=== PATIENT | male | born 1945 | race Caucasian/White ===

== ENCOUNTER 2018-04-21 15:29 | Inpatient (IN) | payer MEDICARE ==
[~2018-04-21] VITALS: Ht 185.4 cm; Wt 97.5 kg
[~2018-04-21 15:29] MED LIST: ACETAMINOPHEN325 M1 PO; ASPIRIN EC81 MG PO; ATENOLOL100 MG PO; ATORVASTATIN CA20 MG PO; BACTROBAN15 GM TOP; BRILINTA90 MG PO; CIPRO500 MG PO; COLACE100 MG PO; DILAUDID2 MG PO; DIPHENHYDRAMINE25 M1 PO; DOXYCYCLINE MO100 MG PO; FUROSEMIDE20 MG PO; GABAPENTIN300 MG PO; GEMFIBROZIL600 MG PO; GLIMEPIRIDE4 MG PO; HUMALOG100 UNITS/ SQ; HUMULIN N100 UNITS/ SQ; ISOSORBIDE DINI30 MG PO; ISOSORBIDE MONO30 MG PO; LEVAQUIN500 MG PO; LEVEMIR100 UNIT/1 SC; LEVIMIR SC; LISINOPRIL20 MG PO; MELATONIN3 MG PO; METHADONE HCL10 MG PO; MILK OF MA2400 MG/10 PO; MIRALAX17 GM PO; MULTI-VITAMIN1 EACH PO; NITROSTAT0.4 MG SL; NORCO 10-325 T1 EACH PO; NOVOLOG MI100 UNIT/1 SQ; OXYCODONE HCL20 M1 PO; OXYCONTIN10 MG PO; OXYCONTIN20 MG PO; PENICILLIN PO; POTASSIUM GLUCONATE PO; PROBIOTIC COMP1 EAC1 PO; SENNA LAXATIVE1 EACH PO; SUCRALFATE1 GM PO; TUMS DUAL ACTI1 EACH PO; VANCOMYCIN IV; VICODIN ES 7.51 EACH PO; VOLTAREN100 GM TOP; XARELTO20 MG PO; ZOLPIDEM TARTRA10 MG PO; ZYVOX600 MG PO
[2018-04-21] MEDS ORDERED: PIPER-TAZ 3.375 GM 50 ML IV STA (16:47)
[2018-04-21 17:40] LABS: BASOPHILS % 0.4 % (0.0-1.0); EOSINOPHILS # (AUTO) 0.2 (0.0-0.4); EOSINOPHILS % 3.1 % (0.0-6.0); HEMATOCRIT 40.2 % (38.2-49.6); HEMOGLOBIN 12.4 g/dL (14.0-18.0); LYMPHOCYTES # (AUTO) 1.7 (1.0-3.2); MEAN CORPUSCULAR HEMOGLOBIN 27.9 pg (28-32); MEAN CORPUSCULAR HGB CONC 30.8 g/dL (31-35); MEAN CORPUSCULAR VOLUME 90.3 fL (81-99); MONOCYTES # (AUTO) 0.7 (0.2-0.8); MONOCYTES % 8.7 % (4.4-11.3); NEUTROPHILS # (AUTO) 5.1 (2.1-6.9); NEUTROPHILS % 65.5 % (38.7-80.0); PLATELET COUNT 179 x10e3/uL (140-360); RED BLOOD COUNT 4.45 x10e6/uL (4.3-5.7); RED CELL DISTRIBUTION WIDTH 13.6 % (11.7-14.4)
--- NOTE | 2018-04-21 18:57 | Diagnostic Imaging Report ---
FOOT RIGHT COMPLETE - 3 views HISTORY: Nonhealing foot ulcer. Osteomyelitis. COMPARISON: None available. FINDINGS: Bones: Status post transmetatarsal amputation with mild erosion of the left aspect of the amputation site best seen on the lateral view. Generalized osteopenia. No acute fracture. Joints: Degenerative changes of the tarsal joints. Soft tissues: Vascular calcifications. IMPRESSION: Mild erosion in the plantar aspect of the transmetatarsal amputation site may reflect osteomyelitis in this clinical setting. MRI with contrast may be helpful for further evaluation Signed by: Dr. Nicole Gee M.D. on 04/21/2018 6:54 PM
[2018-04-21 19:23] LABS: BILIRUBIN,URINE NEGATIVE (NEGATIVE); CLARITY,URINE CLEAR (CLEAR); COLOR,URINE YELLOW (YELLOW); KETONES,URINE NEGATIVE (NEGATIVE); LEUKOCYTE ESTERASE ,URINE NEGATIVE (NEGATIVE); NITRITE,URINE NEGATIVE (NEGATIVE); PROTEIN,URINE DIPSTICK 2+ (NEGATIVE); URINE UROBILINOGEN 0.2 mg/dL (0.2 - 1)
[2018-04-21] MEDS ORDERED: MORPHINE SULFATE 2 MG/ML SYR IV PRN (19:30)
[2018-04-21] MEDS ORDERED: ONDANSETRON HCL INJ 2 MG/ML VIAL IV PRN (19:30)
[2018-04-21 19:35] LABS: ALANINE AMINOTRANSFERASE 14 IU/L (0-55); ALBUMIN 3.7 g/dL (3.5-5.0); ALBUMIN/GLOBULIN RATIO 1.2 (0.8-2.0); ALKALINE PHOSPHATASE 144 IU/L (40-150); ANION GAP 13.1 mmol/L (8-16); BLOOD UREA NITROGEN 24 mg/dL (7-26); BUN/CREATININE RATIO 21 (6-25); CALCIUM 9.1 mg/dL (8.4-10.2); CARBON DIOXIDE 27 mmol/L (22-29); CHLORIDE 102 mmol/L (98-107); CREATININE, SERUM 1.12 mg/dL (0.72-1.25); EST GLOMERULAR FILTRATION RATE > 60 ML/MIN (60-); GLUCOSE 112 mg/dL (74-118); POTASSIUM 4.1 mmol/L (3.5-5.1); SODIUM 138 mmol/L (136-145)
[2018-04-21 19:36] LABS: BACTERIA,URINE FEW /HPF; EPITHELIAL CELLS,URINE FEW /LPF
[2018-04-21] MEDS: MORPHINE SULFATE INJ 4 MG/ML INJ IV PRN (19:55)
[2018-04-21] MEDS ORDERED: DEXTROSE 50% SYRINGE 50 ML IV PRN (20:00)
[2018-04-21] MEDS ORDERED: LORAZEPAM INJ 2 MG/ML VIAL IV ONE (20:00)
--- OUTSIDE RECORDS SUMMARY | 2018-04-21 20:25 | XMS REPORT | Clinical Summary ---
Author Author IBETH [facility] Center[facility] Address Unknown Phone Unavailable Care Team Providers Care Real Property Appraiser Name Role Phone PCP Unavailable Allergies Active Allergy Reactions Severity Noted Date Comments Codeine Other (See Comments) 12/15/2012 Stomach ache Current Medications Prescription Sig. Disp. Refills Start End Date Status Date atenolol (TENORMIN) 100 Take 50 mg by mouth 2 Active MG tablet (two) times daily. zolpidem (AMBIEN) 10 mg Take 5 mg by mouth as Active tablet needed. gemfibrozil (LOPID) 600 Take 600 mg by mouth 2 Active MG tablet (two) times daily. lisinopril Take 20 mg by mouth 2 Active (PRINIVIL,ZESTRIL) 20 MG (two) times daily. tablet atorvastatin (LIPITOR) 40 Take 20 mg by mouth Active MG tablet nightly. furosemide (LASIX) 20 MG Take 1 tablet (20 mg 20 tablet 0 12/17/19 Active tablet total) by mouth daily. 13 glimepiride (AMARYL) 4 MG Take 1 tablet (4 mg 30 tablet 5 12/17/19 Active tablet total) by mouth 2 (two) 13 times daily. insulin NPH 100 unit/mL Inject 190 Units Active (3 mL) InPn subcutaneously every morning before breakfast. POTASSIUM CHLORIDE Take by mouth. Active (KLOR-CON M20 ORAL) nitroglycerin (NITROSTAT) Place 0.4 mg under the Active 0.4 MG SL tablet tongue every 5 (five) minutes as needed for Chest pain. Put 1 pill under tongue every 5min as needed for chest pain.No more than 3 doses in 15min.Call 911 if pain is unrelieved 5min after 1st dose methadone (DOLOPHINE) 10 Take 10 mg by mouth 2 Active MG tablet (two) times daily. isosorbide dinitrate Take 60 mg by mouth 2 12/17/19 Active (ISORDIL) 30 MG tablet (two) times daily. 13 insulin lispro (HUMALOG) Inject subcutaneously 3 Active 100 unit/mL (three) times daily injectionIndications: before meals. 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 Other mechanical complication of other internal orthopedic device, implant, 09/25/2014 and graft Unstable angina pectoris (HCC) 12/16/2012 CAD (coronary artery disease) 12/15/2012 Encounters Date Type Specialty Care Team Description 07/21/2017 Hospital Tino Cao Atherosclerosis of [place] Encounter coronary artery, angina presence unspecified, unspecified whether [place] or transplanted heart;Other specified peripheral vascular diseases (CODE) ([facility]);Hypertension, unspecified type;Uncontrolled type 2 diabetes mellitus with complication, unspecified bed bug exterminator insulin use status ([facility]);Other hyperlipidemia;Generalize d ischemic cerebrovascular disease 07/19/2017 Outside Orders Central Scheduling Tino Cao Atherosclerosis of [place] coronary artery, angina presence unspecified, unspecified whether [place] or transplanted heart (Primary Dx);Other specified peripheral vascular diseases (CODE) ([facility]);Hypertension, unspecified type;Uncontrolled type 2 diabetes mellitus with complication, unspecified alf insulin use status ([facility]);Other hyperlipidemia;Generalize d ischemic cerebrovascular disease after 04/20/2017 Social History Tobacco Use Types Packs/Day Years Used Date Never Smoker Smokeless Tobacco: Never Used Alcohol Use Drinks/Week oz/Week Comments No Sex Assigned at Date Recorded Not on file Last Filed Vital Signs Not on file Plan of Treatment Not on file Implants Implanted Type Area Glaze Grinder Device Expiration Model / Identifier Date Serial / Lot Acet Head,Modular Cocr 36mm +12mm Joints Right: Hip [employer] 07/28/2020-866393 Skirted - [id number] / Implanted: Qty: 1 on 09/25/2014 by / Steve Niño MD [id number] Acet Liner,G7 Arcomxl 10 Deg 36mm Pain Right: Hip [employer] 06/27/2018 [id number] - [id number] Mgmt/Stimu / Implanted: Qty: 1 on 09/25/2014 by Steve Garza MD [id number] Acet Liner,G7 Arcomxl Neutral 36mm Pain Right: Hip [employer] 04/27/2018 [id number] G - [id number] Mgmt/Stimu / Implanted: Qty: 1 on 09/25/2014 by Steve Garza MD [id number] Screw,G7 Low Profile Dome 6.5x30mm Pain Right: Hip [employer] 02/26/2024 [id number] - [id number] Mgmt/Stimu / Implanted: Qty: 1 on 09/25/2014 by Steve Garza MD [id number] Screw,G7 Low Profile Dome 6.5x15mm Pain Right: Hip [employer] 03/27/2024 [id number] - [id number] Mgmt/Stimu / Implanted: Qty: 1 on 09/25/2014 by Steve Garza MD [id number] Screw,G7 Low Profile Dome 6.5x25mm Pain Right: Hip [employer] 01/26/2024 [id number] - [id number] Mgmt/Stimu / Implanted: Qty: 1 on 09/25/2014 by Steve Garza MD [id number] G7 [place] Ti Acetabular Shell Right: Hip [employer] 05/27/2024 [id number] Implanted: Qty: 1 on 09/25/2014 by / Steve Niño MD / [id number] Results * XR Chest 2 Views (07/21/2017 9:30 AM) Specimen Performing Laboratory GE RIS Narrative FINAL REPORT Chest, AP and lateral, three images. History: I25.10. Comparison: 09/11/2015, 08/01/2014. Discussion:The cardiomediastinal silhouette and pulmonary vasculature are within normal limits. The lungs are clear without evidence of consolidation or effusion.There are no acute osseous abnormalities. The soft tissues are unremarkable. IMPRESSION: No acute cardiopulmonary abnormality. Signed: Charu Vásquez MD Report Verified Date/Time:07/21/2017 10:06:52 Reading Location: [address] Radiology Reading Room Procedure Note Interface, External Ris In - 07/21/2017 10:08 AM ELECTRONIC EQUIPMENT REPAIRER FINAL REPORT Chest, AP and lateral, three images. History: I25.10. Comparison: 09/11/2015, 08/01/2014. Discussion: The cardiomediastinal silhouette and pulmonary vasculature are within normal limits. The lungs are clear without evidence of consolidation or effusion. There are no acute osseous abnormalities. The soft tissues are unremarkable. IMPRESSION: No acute cardiopulmonary abnormality. Signed: Charu Vásquez MD Report Verified Date/Time: 07/21/2017 10:06:52 Reading Location: [address] Radiology Reading Room after 04/20/2017
--- OUTSIDE RECORDS SUMMARY | 2018-04-21 20:25 | XMS REPORT ---
Author Author [facility] Address Unknown Phone Unavailable Care Team Providers Care Corporate Treasurer Name Role Phone Abner RUIZ Unavailable Unavailable Problems This patient has no known problems. Allergies, Adverse Reactions, Alerts This patient has no known allergies or adverse reactions. Medications This patient has no known medications. Results Test Description Test Time Test Comments Text Results Atomic Results Result Comments FOOT RIGHT COMPLETE 2018-04-21 18:51:00 [place] [address] Patient Name: PETRA ERIC MR #: [id number] : 1945 Age/Sex: 72/M Req #: [id number] Adm Physician: Ordered by: MELISSA NARVAEZ NP Report #: [id number] Location: ER Room/Bed: Procedure: [id number] DX/FOOT RIGHT COMPLETE Exam Date: Exam Time: REPORT STATUS: Signed FOOT RIGHT COMPLETE - 3 views HISTORY: Nonhealing foot ulcer. Osteomyelitis. COMPARISON: None available. FINDINGS: Bones: Status post transmetatarsal amputation with mild erosion of the left aspect of the amputation site best seen on the lateral view. Generalized osteopenia. No acute fracture. Joints: Degenerative changes of the tarsal joints. Soft tissues: Vascular calcifications. IMPRESSION: Mild erosion in the plantar aspect of the transmetatarsal amputation site may reflect osteomyelitis in this clinical setting. MRI with contrast may be helpful for further evaluation Signed by: Dr. Nicole Diop M.D. on 04/21/2018 6:54 PM Dictated By: YU DIOP MD, MD 53 Transcribed By: REGINALD on 04/21/181853 COPY TO: MELISSA NARVAEZ POWER ORIGINATOR RAD, CHEST, 2 VIEWS 2017-07-21 10:06:00 Reason for Exam:->I25.10, I73.89, I10, E11.65 FINAL REPORT Chest, AP and lateral, three images. History: I25.10. Comparison: 09/11/2015, 08/01/2014. Discussion: The cardiomediastinal silhouette and pulmonary vasculature are within normal limits. The lungs are clear without evidence of consolidation or effusion. There are no acute osseous abnormalities. The soft tissues are unremarkable. IMPRESSION: No acute cardiopulmonary abnormality. Signed: Charu Arias MDReport Verified Date/Time: 07/21/2017 10:06:52 Reading Location: [address] Radiology Reading Room
[2018-04-21] MEDS ORDERED: GADOBENATE DIMEGLUMINE 1 ML IV ONE (20:34)
[2018-04-21] MEDS: VANCOMYCIN 1GM/NS 250 ML 250 ML IV SCH (20:50)
[2018-04-21] MEDS: INSULIN REGULAR, HUMAN 100 UNIT/1 ML 3ML VIAL SQ SCH ×2 (20:53→21:00)
[2018-04-22] MEDS ORDERED: SODIUM CHLORIDE 0.9% 250ML 250 ML ONE (00:25)
[2018-04-22 00:29] VITALS: BP 154/75
[2018-04-22 00:30] VITALS: BP 154/75
[2018-04-22] MEDS: PIPER-TAZ 3.375 GM 50 ML IV SCH ×3 (00:30→13:22)
[2018-04-22 04:00] VITALS: BP 131/61
[2018-04-22 05:51] LABS: ALBUMIN 3.1 g/dL (3.5-5.0); ALBUMIN/GLOBULIN RATIO 1.2 (0.8-2.0); ANION GAP 12.7 mmol/L (8-16); CALCIUM 8.4 mg/dL (8.4-10.2); CREATININE, SERUM 1.44 mg/dL (0.72-1.25); POTASSIUM 4.7 mmol/L (3.5-5.1)
[2018-04-22 06:34] LABS: BASOPHILS % 0.4 % (0.0-1.0); EOSINOPHILS # (AUTO) 0.3 (0.0-0.4); HEMATOCRIT 36.6 % (38.2-49.6); HEMOGLOBIN 11.2 g/dL (14.0-18.0); LYMPHOCYTES % 25.6 % (18.0-39.1); MEAN CORPUSCULAR HEMOGLOBIN 28.2 pg (28-32); MEAN CORPUSCULAR HGB CONC 30.6 g/dL (31-35); MEAN CORPUSCULAR VOLUME 92.2 fL (81-99); MONOCYTES # (AUTO) 0.8 (0.2-0.8); MONOCYTES % 9.9 % (4.4-11.3); NEUTROPHILS # (AUTO) 4.7 (2.1-6.9); NEUTROPHILS % 59.8 % (38.7-80.0); PLATELET COUNT 165 x10e3/uL (140-360); RED BLOOD COUNT 3.97 x10e6/uL (4.3-5.7); RED CELL DISTRIBUTION WIDTH 13.7 % (11.7-14.4)
[2018-04-22 08:00] VITALS: BP 107/53
[2018-04-22] MEDS: INSULIN REGULAR, HUMAN 100 UNIT/1 ML 3ML VIAL SQ SCH ×2 (08:30→13:22)
[2018-04-22] MEDS: VANCOMYCIN 1GM/NS 250 ML 250 ML IV SCH (08:30)
--- NOTE | 2018-04-22 08:59 | Diagnostic Imaging Report ---
MRI of the right forefoot with and without contrast. History: Foot swelling and nonhealing wound. Ulcer on ball of right foot. Diabetes. Osteomyelitis. Prior surgery. Technique: Multiplanar multisequence MRI of the right foot with and without IV contrast. 19 cc IV gadolinium contrast material was administered Comparison: Radiographs 04/21/2018 Findings: Status post transmetatarsal amputation involving the first through fifth toes at the level of the mid metatarsals with associated postsurgical change. No focal bone marrow edema or cortical destruction is seen to suggest osteomyelitis at this time. There is abnormal skin thickening and abnormal soft tissue edema at the soft tissue stump. No well-formed drainable fluid collection/abscess is seen. There is diffuse muscle atrophy. The visualized neurovascular bundles are intact. No ligamentous or tendon tear is seen. Impression: Findings most consistent with cellulitis involving the distal soft tissue stump. No focal bone marrow edema or cortical destruction is seen to suggest osteomyelitis at this time. No abnormal enhancing fluid collections or masses. Signed by: Dr. Sahil Lugo M.D. on 04/22/2018 8:56 AM
[2018-04-22 12:00] VITALS: BP 107/57
[2018-04-22] MEDS: MORPHINE SULFATE INJ 4 MG/ML INJ IV PRN (13:23)
[2018-04-22] MEDS ORDERED: DOXYCYCLINE HY100 MG PO (16:46)
[2018-04-22] MEDS ORDERED: nystatin TOP (16:48)
[2018-04-22 17:08] VITALS: BP 175/87
--- NOTE | 2018-06-08 01:58 | Discharge Summary ---
CHIEF COMPLAINT: Diabetic foot ulcer and osteomyelitis, right foot. FINAL DIAGNOSES: 1. Cellulitis, right foot. 2. Peripheral arterial disease. 3. Chronic pain. 4. Coronary artery disease. DISPOSITION: Home. Fnjhkxj-bcw[age]obhz-old male with known history of coronary artery disease, peripheral arterial disease, hypertension, chronic pain syndrome, status post left BKA, brought to the ER with a several day history of nonhealing and draining right foot ulcer. No fever or chills. No chest pain or shortness of breath. Reviewed in the ER. Findings show right foot showing a diabetic ulcer actively draining odors, plantar surface. Care was given, and admission was made for treatment regarding issues of cellulitis, right foot; nonhealing ulcer, right foot; peripheral arterial disease, status post left BKA. Will be requesting an MRI of the right foot to rule out osteomyelitis. Begin aggressive IV antibiotic coverage. Continue home medications. Patient was admitted to the med-surg floor, was on ADA diet, was doing fairly well, was receiving vancomycin as well as Zosyn. Morphine was being administered for pain. He was receiving his routine insulin protocols. Laboratory studies were showing stable electrolytes. Kidney functions were stable. Glucose 194. CBC stable. MRI studies were showing no evidence of osteomyelitis. Arrangements were being made to discharge the patient home. He will be taken off the IV antibiotics, but will continue with p.o. doxycycline as well as being given some nystatin cream. The patient was cleared for discharge and was released on April 22, 2018 in stable condition. With discharge home, patient will continue with his diabetic diet. No equipment or supplies necessary. No drains or [place] are needed. Activity level as directed by myself. Was given a prescription for nystatin cream apply to the affected area b.i.d., doxycycline monohydrate 100 mg 1 tablet p.o. b.i.d. #28. He will continue on his daily medications of acetaminophen 500 mg every 4 hours as needed for pain, aspirin 81 mg daily, atorvastatin calcium 40 mg daily, Voltaren 1 g topically twice a day, diphenhydramine 25 mg 1 every 4 hours, Colace 100 mg daily, famotidine 2 tablets every 4 hours as needed for indigestion, furosemide 40 mg twice a day, gabapentin 300 mg every 8 hours, gemfibrozil 600 mg twice a day, Lackey 10 per 325 one tablet every 4 hours as needed for pain, Levemir 20 units subcutaneous daily and 25 units nightly, NovoLog Mix 70/30 FlexPen syringe sliding scale before meals and at bedtime, isosorbide mononitrate 60 mg twice a day, probiotic 1 tablet daily, Zestril 20 mg twice a day, magnesium hydroxide 10 mL oral suspension as needed for constipation, melatonin 10 mg at bedtime, multivitamin 1 daily, Bactroban cream 15 g 2% apply topically as needed, oxycodone 20 mg every 12 hours as needed for pain, polyethylene glycol 1 unit dose packet every 6 hours as needed for constipation, potassium gluconate 595 mg twice a day, Xarelto 20 mg daily, Senna 1 tablet daily, sucralfate 1 g 3 times a day. The patient will be following back up with me in my office within 2 weeks or sooner if there are any further difficulties that might arise or concerns that the patient develops. Dictated By: LINDSEY Riddle Job#: [id number]
== END 2018-04-22 18:36 | disposition home or self-care (01) | DRG 638 ==
LOC: ER 15:29 → ERHOLD 19:21 → MED/SURG2 23:40
DX: E11.621 Type 2 diabetes mellitus with foot ulcer (principal); L03.115 Cellulitis of right lower limb; L97.519 Non-pressure chronic ulcer of other part of right foot with unspecified severity; Z89.512 Acquired absence of left leg below knee; I25.10 Atherosclerotic heart disease of native coronary artery without angina pectoris; Z98.61 Coronary angioplasty status; I10 Essential (primary) hypertension; E11.51 Type 2 diabetes mellitus with diabetic peripheral angiopathy without gangrene; Z79.4 Long term (current) use of insulin; Z79.01 Long term (current) use of anticoagulants; Z79.82 Long term (current) use of aspirin; Z88.5 Allergy status to narcotic agent; G89.4 Chronic pain syndrome; Z89.431 Acquired absence of right foot
CPT/HCPCS: 36415; 80053; 81001; 82948; 83605; 85025; 87040; 87086; 99284; J2060; J2270; J2405; J2543; J3370; J7050

== ENCOUNTER 2018-12-20 14:55 | Inpatient (IN) | payer MEDICARE ==
[~2018-12-20] VITALS: Ht 185.4 cm; Wt 93.7 kg
[~2018-12-20 14:55] MED LIST changes: +DOXYCYCLINE HY100 MG PO; +nystatin TOP
--- OUTSIDE RECORDS SUMMARY | 2018-12-20 14:59 | XMS REPORT | Clinical Summary ---
Author Author Semaj [facility] Organization [facility] Address Unknown Phone Unavailable Care Team Providers Care Optical Lens Manufacturing Tech Name Role Phone Alicia Panda MD PCP Allergies Comments Active Allergy Reactions Severity Noted Date Stomach ache Codeine Other (See 12/15/2012 Comments) Medications End Date Status Medication Sig Dispensed Refills Start Date Active atorvastatin (LIPITOR) 40 0 MG tablet 9 Active furosemide (LASIX) 40 mg 0 tablet 9 Active gabapentin (NEURONTIN) 0 300 mg capsule 9 Active gemfibrozil (LOPID) 600 0 MG tablet 9 Active glimepiride (AMARYL) 4 MG 0 tablet 9 Active hydrALAZINE (APRESOLINE) 0 50 MG tablet 9 Active HYDROcodone-acetaminophen 0 (NORCO) 7.5-325 mg per 9 tablet Active LEVEMIR U-100 INSULIN 100 0 unit/mL injection 8 Active HUMALOG U-100 INSULIN 100 0 unit/mL injection 8 Active isosorbide mononitrate 0 (IMDUR) 60 MG 24 hr 9 tablet Active lisinopril 0 (PRINIVIL,ZESTRIL) 20 mg 9 tablet Active methadone (DOLOPHINE) 10 0 MG tablet 9 Active metoprolol tartrate 0 (LOPRESSOR) 50 mg tablet 9 Active nitroglycerin (NITROSTAT) 0 0.4 MG SL tablet 9 Active pantoprazole (PROTONIX) 0 40 MG EC tablet 9 Active primidone (MYSOLINE) 50 0 MG tablet 9 Active BRILINTA 90 mg tablet 0 9 Active triamcinolone (KENALOG) 0 0.1 % cream 9 Active zolpidem (AMBIEN) 10 mg 0 tablet 9 Active Problems Not on file Encounters Care Team Description Date Type Specialty Apolinar Valera MD Shortness of breath (Primary Dx); Secondary hypertension 08/04/2018 Emergency Emergency Medicine Adrián Hanna DPM 05/09/2018 Office Visit Wound Care after 12/19/2017 Social History Date Tobacco Use Types Packs/Day Years Used Never Smoker Smokeless Tobacco: Never Used Alcohol Use Drinks/Week oz/Week Comments No Alcohol Habits Answer Date Recorded How often do you have a drink containing alcohol? Never 08/04/2018 How many drinks containing alcohol do you have on Not asked a typical day when you are drinking? How often do you have six or more drinks on one Not asked occasion? Sex Assigned at Date Recorded Not on file Industry Job Start Date Occupation Not on file Not on file Not on file Travel End Travel History Travel Start No recent travel history available. Last Filed Vital Signs Time Taken Vital Sign Reading 08/04/2018 9:20 PM CREW MESS ATTENDANT Blood Pressure 136/76 08/04/2018 9:20 PM CREW MESS ATTENDANT Pulse 80 08/04/2018 7:14 PM CREW MESS ATTENDANT Temperature 37.2 C (99 F) 08/04/2018 9:20 PM CREW MESS ATTENDANT Respiratory Rate 19 08/04/2018 9:20 PM CREW MESS ATTENDANT Oxygen Saturation 96% - Inhaled Oxygen - Concentration 08/04/2018 7:14 PM CREW MESS ATTENDANT Weight 97.5 kg (215 lb) 08/04/2018 7:14 PM CREW MESS ATTENDANT Height 185.4 cm (6' 1") 08/04/2018 7:14 PM CREW MESS ATTENDANT Body Mass Index 28.37 Plan of Treatment Health Maintenance Due Date Last Done Comments COLONOSCOPY SCREENING 09/25/1995 SHINGLES VACCINES (#1) 09/25/1995 65+ PNEUMOCOCCAL VACCINE 2010 (1 of 2 - PCV13) INFLUENZA VACCINE 01/26/2019 Procedures Comments Procedure Name Priority Date/Time Associated Diagnosis XR CHEST 1 VW PORTABLE STAT 08/04/2018 7:43 PM CREW MESS ATTENDANT ESTIMATED GFR STAT 08/04/2018 7:42 PM CREW MESS ATTENDANT B NATRIURETIC PEPTIDE STAT 08/04/2018 7:42 PM CREW MESS ATTENDANT TROPONIN STAT 08/04/2018 7:42 PM CREW MESS ATTENDANT COMPREHENSIVE METABOLIC STAT 08/04/2018 PANEL 7:42 PM CREW MESS ATTENDANT HC COMPLETE BLD COUNT STAT 08/04/2018 W/AUTO DIFF 7:42 PM CREW MESS ATTENDANT ECG ED PRELIMINARY Routine 08/04/2018 INTERPRETATION 7:30 PM CREW MESS ATTENDANT ECG 12-LEAD STAT 08/04/2018 7:20 PM CREW MESS ATTENDANT POC GLUCOSE Routine 05/09/2018 9:28 AM CREW MESS ATTENDANT after 12/19/2017 Results * XR Chest 1 Vw Portable (08/04/2018 7:43 PM CREW MESS ATTENDANT) Specimen Narrative Performed At EXAMINATION:XR CHEST 1 VW PORTABLE [facility] CLINICAL HISTORY: rule out pna COMPARISON:None IMPRESSION: Low lung volumes results in bronchovascular crowding and bibasilar atelectasis. Taking this into consideration, cardiomediastinal silhouette is at the upper limits of normal in size. Midline sternotomy wires are intact. No superimposed focal or confluent airspace consolidation is seen to suggest acute pneumonia. No sizable pleural effusion. No pneumothorax identified. No acute osseous abnormalities are visualized. [facility]-[id number] Procedure Note Hm Interface, Radiology Results Incoming - 08/04/2018 7:53 PM CREW MESS ATTENDANT EXAMINATION: XR CHEST 1 VW PORTABLE CLINICAL HISTORY: rule out pna COMPARISON: None IMPRESSION: Low lung volumes results in bronchovascular crowding and bibasilar atelectasis. Taking this into consideration, cardiomediastinal silhouette is at the upper limits of normal in size. Midline sternotomy wires are intact. No superimposed focal or confluent airspace consolidation is seen to suggest acute pneumonia. No sizable pleural effusion. No pneumothorax identified. No acute osseous abnormalities are visualized. [facility]-[id number] Performing Organization Address City/State/Zipcode Phone Number [facility] [address] [place] [address] * Estimated GFR (08/04/2018 7:42 PM CREW MESS ATTENDANT) Estimated GFR 66 mL/min/1.73 m2 [place] Comment: [facility] G1 >=90 Normal or high G2 60-89Mildly decreased [id number] Mildly to moderately decreased [id number] Moderately to severely decreased G4 15-29Severely decreased G5 <15Kidney failure The eGFR was calculated using the Chronic Kidney Disease Epidemiology Collaboration (CKD-EPI) equation. Interpretation is based on recommendations of the National Kidney Foundation-Kidney Disease Outcomes Quality Initiative (NKF-KDOQI) published in 2014. Specimen Plasma specimen Performing Organization Address City/State/[place] [address] PATHOLOGY AND GENOMIC MEDICINE [address] * Troponin (08/04/2018 7:42 PM CREW MESS ATTENDANT) [facility] Troponin <0.30 0.00 - 0.30 ng/mL [place] Comment: [facility] 0.11 - 1.49 [facility] indicate increased risk of acute coronary syndrome. >=1.5 ng/ml Consistent with acute myocardial infarction. The diagnostic value of a single normal or non-diagnostic result is questionable.Serial samples at 2-6 hour intervals are required to rule out acute myocardial injury. Specimen Plasma specimen Performing Organization Address City/[facility] [place] [address] * CBC with platelet and differential (08/04/2018 7:42 PM CREW MESS ATTENDANT) [facility] WBC 9.1 4.2 - 11.0 k/uL [facility] RBC 4.36 4.04 - 5.86 m/uL [facility] HGB 12.7 (L) 13.0 - 17.3 g/dL [facility] HCT 40.7 34.0 - 45.0 % [facility] MCV 93.3 80.0 - 98.[address] [facility] MCH 29.1 27.0 - 34.[address] [facility] MCHC 31.2 (L) 31.5 - 36.5 g/dL [facility] RDW - SD 47.3 37.0 - 51.[address] [facility] MPV 11.8 (H) 7.4 - 10.[address] [facility] Platelet count 160 150 - 400 k/uL [facility] Nucleated RBC 0.00 /[address] [facility] Neutrophils 79.8 (H) 36.0 - 66.0 % [facility] Lymphocytes 11.9 (L) 24.0 - 44.0 % [facility] Monocytes 6.8 (H) 0.0 - 6.0 % [facility] Eosinophils 1.1 0.0 - 6.0 % [facility] Basophils 0.2 0.0 - 1.2 % [facility] Immature 0.2 0.0 - 1.0 % [place] granulocytes [facility] Specimen Blood Performing Organization Address City/[facility] [place] [address] PATHOLOGY AND GENOMIC MEDICINE [address] * B natriuretic peptide (08/04/2018 7:42 PM CREW MESS ATTENDANT) [facility] BNP 301 (H) 0 - 100 pg/mL [facility] Specimen Blood Performing Organization Address City/[facility]/[place] [address] PATHOLOGY AND GENOMIC MEDICINE [address] * Comprehensive metabolic panel (08/04/2018 7:42 PM CREW MESS ATTENDANT) [facility] Sodium 140 135 - 150 mEq/L [facility] Potassium 3.9 3.5 - 5.0 mEq/L [facility] Chloride 102 98 - 112 mEq/L [facility] CO2 22 (L) 24 - 31 mmol/L [facility] Anion gap 16@ANIO (H) 7 - 15 mEq/L [facility] BUN 19 (H) 7 - 18 mg/dL [facility] Creatinine 1.10 0.70 - 1.20 mg/dL [facility] Glucose 176 (H) 65 - 100 mg/dL [facility] Calcium 8.8 8.8 - 10.2 mg/dL [facility] Protein 6.6 6.3 - 8.3 g/dL [facility] Albumin 3.6 3.5 - 5.0 g/dL [facility] A/G ratio 1.2 0.7 - 3.8 [facility] Alkaline 145 (H) 0 - 129 U/L [place] phosphatase [facility] AST 25 10 - 50 U/L [facility] ALT 14 5 - 50 U/L [facility] Total bilirubin 0.3 0.2 - 1.2 mg/dL [facility] Specimen Plasma specimen Performing Organization Address City/State/[facility] Phone Number [facility] DEPARTMENT OF [facility] [place] [address] PATHOLOGY AND GENOMIC MEDICINE [address] * ECG ED Preliminary Interpretation - Not an Order (08/04/2018 7:30 PM CREW MESS ATTENDANT) Narrative Performed At Apolinar Valera MD 08/05/2018 12:34 PM ECG ED Preliminary Interpretation - Not an Order Performed by: Apolinar Valera MD Authorized by: Apolinar Valera MD ECG reviewed by ED Physician in the absence of a wet process miller: yes Interpretation: Interpretation: abnormal Rate: ECG rate:60 ECG rate assessment: normal Rhythm: Rhythm: sinus rhythm Ectopy: Ectopy: none QRS: QRS axis:Normal QRS intervals:Normal Conduction: Conduction: normal ST segments: ST segments:Normal T waves: T waves: non-specific * ECG 12 lead (08/04/2018 7:20 PM CREW MESS ATTENDANT) Ventricular 60 [facility] rate Atrial rate 441 [facility] QRSD interval 116 [facility] QT interval 476 [facility] QTC interval 476 [facility] QRS axis 1 126 [facility] T wave axis 16 [facility] EKG impression Atrial fibrillation with a [facility] MUSE competing junctional pacemaker-Right axis deviation-Abnormal ECG-No previous ECGs available- Specimen Narrative Performed At Performing Organization Address City/State/Zipcode Phone Number [facility] MUSE [address] [place] [address] * POC glucose (05/09/2018 9:28 AM CREW MESS ATTENDANT) POC glucose 69 65 - 100 mg/dL [place] Comment: [facility] Meter ID: [id number] [facility] Serging Machine Operator Automatic: [facility] Specimen Performing Organization Address City/State/Zipcode Phone Number [facility] DEPARTMENT OF [address] [facility] [place] [address] PATHOLOGY AND GENOMIC MEDICINE SEMAJ BASS [address] [facility] [place], [place] [id number] [place] [address] after 12/19/2017 Insurance Type Payer Benefit Subscriber ID Effective Phone Address Plan / Dates Group Commercial AARP AARP xxxxxxxxxxx [id number] SUPPLEMENT resent Medicare MEDICARE MEDICARE xxxxxxxxxxx 1991-P [place], PART A AND resent [place] B Advance Directives Patient has advance care planning documents on file. For more information, marily e contact: Semaj Barraza [address] [place] [address]
--- OUTSIDE RECORDS SUMMARY | 2018-12-20 15:00 | XMS REPORT | Clinical Summary ---
Author Author IBETH [employer] Organization [facility] Address Unknown Phone Unavailable Care Team Providers Care Airplane Woodworker Name Role Phone Santino Marroquin MD PCP Unavailable Allergies Comments Active Allergy Reactions Severity Noted Date Stomach ache Codeine Other (See 12/15/2012 Comments) Medications End Date Status Medication Sig Dispensed Refills Start Date Active atenolol (TENORMIN) 100 Take 50 mg by 0 MG tablet mouth 2 (two) times daily. Active zolpidem (AMBIEN) 10 mg Take 5 mg by 0 tablet mouth as needed. Active gemfibrozil (LOPID) 600 Take 600 mg 0 MG tablet by mouth 2 (two) times daily. Active lisinopril Take 20 mg by 0 (PRINIVIL,ZESTRIL) 20 MG mouth 2 (two) tablet times daily. Active atorvastatin (LIPITOR) 40 Take 20 mg by 0 MG tablet mouth nightly. Active furosemide (LASIX) 20 MG Take 1 tablet 20 tablet 0 tablet (20 mg total) 3 by mouth daily. Active glimepiride (AMARYL) 4 MG Take 1 tablet 30 tablet 5 tablet (4 mg total) 3 by mouth 2 (two) times daily. Active insulin NPH 100 unit/mL Inject 190 0 (3 mL) InPn Units subcutaneousl y every morning before breakfast. Active POTASSIUM CHLORIDE Take by 0 (KLOR-CON M20 ORAL) mouth. Active nitroglycerin (NITROSTAT) Place 0.4 mg 0 0.4 MG SL tablet under the tongue every 5 (five) minutes as needed for Chest pain. Put 1 pill under tongue every 5min as needed for chest pain.No more than 3 doses in 15min.Call 911 if pain is unrelieved 5min after 1st dose Active methadone (DOLOPHINE) 10 Take 10 mg by 0 MG tablet mouth 2 (two) times daily. Active isosorbide dinitrate Take 60 mg by 0 (ISORDIL) 30 MG tablet mouth 2 (two) 3 times daily. Active insulin lispro (HUMALOG) Inject 0 100 unit/mL subcutaneousl injectionIndications: y 3 (three) diabetes mellitus times daily before meals. 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 Last Filed Vital Signs Not on file Plan of Treatment Not on file Implants Device Identifier Shelf Expiration Date Model / Serial / Lot Implanted Type Area Manufactur er 07/28/2020 [id number] / / [id number] Acet Head,Modular Cocr 36mm +12mm Joints Right: Hip BIOMET/O.E Skirted - [id number] .C. Implanted: Qty: 1 on 09/25/2014 by Steve Niño MD 06/27/2018 [id number] / / [id number] Acet Liner,G7 Arcomxl 10 Deg 36mm Pain Right: Hip [employer] Lizette G - [id number] Mgmt/Stimu Implanted: Qty: 1 on 09/25/2014 by Steve Cerda MD 04/27/2018 [id number] / / [id number] Acet Liner,G7 Arcomxl Neutral 36mm Pain Right: Hip [employer] Lizette G - [id number] Mgmt/Stimu Implanted: Qty: 1 on 09/25/2014 by Steve Cerda MD 02/26/2024 [id number] / / [id number] Screw,G7 Low Profile Dome 6.5x30mm Pain Right: Hip [employer] - [id number] Mgmt/Stimu Implanted: Qty: 1 on 09/25/2014 by Steve Cerda MD 03/27/2024 [id number] / / [id number] Screw,G7 Low Profile Dome 6.5x15mm Pain Right: Hip [employer] - [id number] Mgmt/Stimu Implanted: Qty: 1 on 09/25/2014 by Steve Cerda MD 01/26/2024 [id number] / / [id number] Screw,G7 Low Profile Dome 6.5x25mm Pain Right: Hip [employer] - [id number] Mgmt/Stimu Implanted: Qty: 1 on 09/25/2014 by Steve Cerda MD 05/27/2024 [id number] / / [id number] G7 [place] [employer] Acetabular Shell Right: Hip BI[employer]ET Implanted: Qty: 1 on 09/25/2014 by Steve Niño MD Results Not on fileafter 12/19/2017 Insurance Payer Benefit Subscriber ID Type Phone Address Plan / Group MEDICARE MEDICARE A xxxxxxxxxx Medicare B MCR SUPPLEMENT/INDIVIDUAL AARP/UNITE xxxxxxxxxxx [facility] D HEALTHCARE Advance Directives For more information, please contact: [address] [address] Date Inactivated Comments Code Status Date Activated 09/27/2014 3:10 PM Full Code 09/25/2014 6:09 AM This code status was determined by: Patient 12/16/2012 4:27 PM All possible means of support, including: cardiac massage, mechanical ventilation, and defibrillation will be used to support life. Code ONE 12/15/2012 1:53 PM
[2018-12-20] MEDS ORDERED: PIPER-TAZ 3.375 GM 50 ML IV STA (15:45)
[2018-12-20] MEDS ORDERED: VANCOMYCIN 1GM/NS 250 ML 250 ML IV STA (15:45)
[2018-12-20] MEDS: PIPER-TAZ 3.375 GM 50 ML IV SCH ×2 (16:25→20:47)
[2018-12-20 16:45] LABS: BASOPHILS % 0.3 % (0.0-1.0); EOSINOPHILS # (AUTO) 0.2 (0.0-0.4); EOSINOPHILS % 3.5 % (0.0-6.0); HEMATOCRIT 37.4 % (38.2-49.6); HEMOGLOBIN 11.8 g/dL (14.0-18.0); LYMPHOCYTES # (AUTO) 1.3 (1.0-3.2); LYMPHOCYTES % 19.4 % (18.0-39.1); MEAN CORPUSCULAR HEMOGLOBIN 28.9 pg (28-32); MEAN CORPUSCULAR HGB CONC 31.6 g/dL (31-35); MEAN CORPUSCULAR VOLUME 91.7 fL (81-99); MONOCYTES # (AUTO) 0.7 (0.2-0.8); MONOCYTES % 9.8 % (4.4-11.3); NEUTROPHILS # (AUTO) 4.6 (2.1-6.9); NEUTROPHILS % 66.6 % (38.7-80.0); PLATELET COUNT 197 x10e3/uL (140-360); RED BLOOD COUNT 4.08 x10e6/uL (4.3-5.7)
[2018-12-20 16:48] LABS: BILIRUBIN,URINE NEGATIVE (NEGATIVE); CLARITY,URINE CLEAR (CLEAR); COLOR,URINE YELLOW (YELLOW); KETONES,URINE NEGATIVE (NEGATIVE); LEUKOCYTE ESTERASE ,URINE NEGATIVE (NEGATIVE); NITRITE,URINE NEGATIVE (NEGATIVE); PROTEIN,URINE DIPSTICK NEGATIVE (NEGATIVE); URINE UROBILINOGEN 0.2 mg/dL (0.2 - 1)
[2018-12-20 16:55] LABS: INR 0.93
[2018-12-20 16:56] LABS: PARTIAL THROMBOPLASTIN TIME 29.5 seconds (23.8-35.5)
--- NOTE | 2018-12-20 17:00 | NUR ---
PATIENT SITTING UP EATING DINNER
[2018-12-20 17:03] LABS: ALANINE AMINOTRANSFERASE 17 IU/L (0-55); ALBUMIN 3.7 g/dL (3.5-5.0); ALBUMIN/GLOBULIN RATIO 1.2 (0.8-2.0); ALKALINE PHOSPHATASE 164 IU/L (40-150); ANION GAP 17.1 mmol/L (8-16); BLOOD UREA NITROGEN 15 mg/dL (7-26); BUN/CREATININE RATIO 15 (6-25); CARBON DIOXIDE 25 mmol/L (22-29); CHLORIDE 101 mmol/L (98-107); CREATININE, SERUM 0.97 mg/dL (0.72-1.25); EST GLOMERULAR FILTRATION RATE > 60 ML/MIN (60-); GLUCOSE 136 mg/dL (74-118); POTASSIUM 4.1 mmol/L (3.5-5.1); SODIUM 139 mmol/L (136-145)
[2018-12-20 17:03] LABS: BACTERIA,URINE MODERATE /HPF; EPITHELIAL CELLS,URINE FEW /LPF
[2018-12-20] MEDS ORDERED: DEXTROSE 50% SYRINGE 50 ML IV PRN (17:30)
[2018-12-20] MEDS ORDERED: SODIUM CHLORIDE 0.9% 1000ML 1,000 ML IV ONE (17:30)
[2018-12-20] MEDS ORDERED: ONDANSETRON HCL INJ 2MG/ML 2ML 2 MG/ML VIAL IV PRN (17:30)
--- OUTSIDE RECORDS SUMMARY | 2018-12-20 17:30 | XMS REPORT | Clinical Summary ---
Author Author Semaj [facility] Organization [facility] Address Unknown Phone Unavailable Care Team Providers Care Fixed Income Director Name Role Phone Alicia Panda MD PCP [...] Taken Vital Sign Reading 08/04/2018 9:20 PM [employer] Blood Pressure 136/76 08/04/2018 9:20 PM [employer] Pulse 80 08/04/2018 7:14 PM [employer] Temperature 37.2 C (99 F) 08/04/2018 9:20 PM [employer] Respiratory Rate 19 08/04/2018 9:20 PM [employer] Oxygen Saturation 96% - Inhaled Oxygen - Concentration 08/04/2018 7:14 PM [employer] Weight 97.5 kg (215 lb) 08/04/2018 7:14 PM [employer] Height 185.4 cm (6' 1") 08/04/2018 7:14 PM [employer] Body Mass Index 28.37 Plan of Treatment Health Maintenance Due Date Last Done Comments COLONOSCOPY SCREENING 09/25/1995 SHINGLES VACCINES (#1) 09/25/1995 65+ PNEUMOCOCCAL VACCINE 2010 (1 of 2 - PCV13) INFLUENZA VACCINE 01/26/2019 Procedures Comments Procedure Name Priority Date/Time Associated Diagnosis XR CHEST 1 VW PORTABLE STAT 08/04/2018 7:43 PM [employer] ESTIMATED GFR STAT 08/04/2018 7:42 PM [employer] B NATRIURETIC PEPTIDE STAT 08/04/2018 7:42 PM [employer] TROPONIN STAT 08/04/2018 7:42 PM [employer] COMPREHENSIVE METABOLIC STAT 08/04/2018 PANEL 7:42 PM [employer] HC COMPLETE BLD COUNT STAT 08/04/2018 W/AUTO DIFF 7:42 PM [employer] ECG ED PRELIMINARY Routine 08/04/2018 INTERPRETATION 7:30 PM [employer] ECG 12-LEAD STAT 08/04/2018 7:20 PM [employer] POC GLUCOSE Routine 05/09/2018 9:28 AM [employer] after 12/19/2017 Results * XR Chest 1 Vw Portable (08/04/2018 7:43 PM [employer]) Specimen Narrative Performed At EXAMINATION:XR CHEST 1 VW PORTABLE [facility] CLINICAL HISTORY: rule out pna COMPARISON:None IMPRESSION: Low lung volumes results in bronchovascular crowding and bibasilar atelectasis. Taking this into consideration, cardiomediastinal silhouette is at the upper limits of normal in size. Midline sternotomy wires are intact. No superimposed focal or confluent airspace consolidation is seen to suggest acute pneumonia. No sizable pleural effusion. No pneumothorax identified. No acute osseous abnormalities are visualized. [facility]-[id number] Procedure Note Hm Interface, Radiology Results Incoming - 08/04/2018 7:53 PM [employer] EXAMINATION: XR CHEST 1 VW PORTABLE CLINICAL [...] identified. No acute osseous abnormalities are visualized. [facility]-[id number] Performing Organization Address City/State/Zipcode Phone Number [facility] [address] [place] [address] * Estimated GFR (08/04/2018 7:42 PM [employer]ISH[employer]) Estimated GFR 66 mL/min/1.73 m2 [place] Comment: [facility] G1 >=90 Normal or high G2 60-89Mildly decreased [id number] Mildly to moderately decreased X6x12-16 Moderately to severely decreased G4 15-29Severely decreased G5 <15Kidney failure The eGFR was calculated using the Chronic Kidney Disease Epidemiology Collaboration (CKD-EPI) equation. Interpretation is based on recommendations of the National Kidney Foundation-Kidney Disease Outcomes Quality Initiative (NKF-KDOQI) published in 2014. Specimen Plasma specimen Performing Organization Address City/State/[place] [address] PATHOLOGY AND GENOMIC MEDICINE [address] * Troponin (08/04/2018 7:42 PM [employer]FINISHER) [facility] Troponin <0.30 0.00 - 0.30 ng/mL [place] Comment: [facility] 0.11 - 1.49 [facility] indicate increased risk of acute coronary syndrome. >=1.5 ng/ml Consistent with acute myocardial infarction. The diagnostic value of a single normal or non-diagnostic result is questionable.Serial samples at 2-6 hour intervals are required to rule out acute myocardial injury. Specimen Plasma specimen Performing Organization Address City/[facility] [place] [address] PATH[address] * CBC with platelet and differential (08/04/2018 7:42 PM [employer]FINISHER) [facility] WBC 9.1 4.2 - 11.0 k/uL [facility] RBC 4.36 4.04 - 5.86 m/uL [facility] HGB 12.7 (L) 13.0 - 17.3 g/dL [facility] HCT 40.7 34.0 - 45.0 % [facility] MCV 93.3 80.0 - 98.0 fL [facility] MCH 29.1 27.0 - 34.0 pg [facility] MCHC 31.2 (L) 31.5 - 36.5 g/dL [facility] RDW - SD 47.3 37.0 - 51.0 fL [facility] MPV 11.8 (H) 7.4 - 10.4 fL [facility] Platelet count 160 150 - 400 k/uL [facility] Nucleated RBC 0.00 /100 WBC [facility] Neutrophils 79.8 (H) 36.0 - 66.0 % [facility] Lymphocytes 11.9 (L) 24.0 - 44.0 % [facility] Monocytes 6.8 (H) 0.0 - 6.0 % [facility] Eosinophils 1.1 0.0 - 6.0 % [facility] Basophils 0.2 0.0 - 1.2 % [facility] Immature 0.2 0.0 - 1.0 % [place] granulocytes [facility] Specimen Blood Performing Organization Address City/[facility] [place] [address] PATHOLOGY AND GENOMIC MEDICINE [address] * B natriuretic peptide (08/04/2018 7:42 PM [employer]) [facility] BNP 301 (H) 0 - 100 pg/mL [facility] Specimen Blood Performing Organization Address City/[facility]/[place] [address] PATHOLOGY AND GENOMIC MEDICINE [address] * Comprehensive metabolic panel (08/04/2018 7:42 PM [employer]) [facility] Sodium 140 135 - 150 mEq/L [facility] Potassium 3.9 3.5 - 5.0 mEq/L [facility] Chloride 102 98 - 112 mEq/L [facility] CO2 22 (L) 24 - 31 mmol/L [facility] Anion gap 16@ANIO (H) 7 - 15 mEq/L [facility] BUN 19 (H) 7 - 18 mg/dL [facility] Creatinine 1.10 0.70 - 1.20 mg/dL [facility] Glucose 176 (H) 65 - 100 mg/dL [facility] Calcium 8.8 8.8 - 10.2 mg/dL [facility] Protein 6.6 6.3 - 8.3 g/dL [facility] Albumin 3.6 3.5 - 5.0 g/dL [facility] A/G ratio 1.2 0.7 - 3.8 [facility] Alkaline 145 (H) 0 - 129 U/L [place] phosphatase [facility] AST 25 10 - 50 U/L [facility] ALT 14 5 - 50 U/L [facility] Total bilirubin 0.3 0.2 - 1.2 mg/dL [facility] Specimen Plasma specimen Performing Organization Address City/State/[facility] Centerconm Phone Number [facility] DEPARTMENT OF [facility] [place] [address] PATHOLOGY AND GENOMIC MEDICINE [address] * ECG ED Preliminary Interpretation - Not an Order (08/04/2018 7:30 PM [employer]) Narrative Performed At Apolinar Valera MD 08/05/2018 12:34 PM ECG ED Preliminary Interpretation - Not an Order Performed by: Apolinar Valera MD Authorized by: Apolinar Valera MD ECG reviewed by ED Physician in the absence of a medical field representative: yes Interpretation: Interpretation: abnormal Rate: ECG rate:60 ECG rate assessment: normal Rhythm: Rhythm: sinus rhythm Ectopy: Ectopy: none QRS: QRS axis:Normal QRS intervals:Normal Conduction: Conduction: normal ST segments: ST segments:Normal T waves: T waves: non-specific * ECG 12 lead (08/04/2018 7:20 PM [employer]) Ventricular 60 [facility] rate Atrial rate 441 [facility] QRSD interval 116 [facility] QT interval 476 [facility] QTC interval 476 [facility] QRS axis 1 126 [facility] T wave axis 16 [facility] EKG impression Atrial fibrillation with a [facility] MUSE competing junctional pacemaker-Right axis deviation-Abnormal ECG-No previous ECGs available- Specimen Narrative Performed At Performing Organization Address City/State/Zipcode Phone Number [facility] MUSE [address] [place] [address] * POC glucose (05/09/2018 9:28 AM [employer]) POC glucose 69 65 - 100 mg/dL [place] Comment: [facility] Meter ID: [id number] [facility] Global Logistics Manager: [facility] Specimen Performing Organization Address City/State/Zipcode Phone Number [facility] DEPARTMENT OF [address] [place] [address] PATHOLOGY AND GENOMIC MEDICINE SEMAJ BASS [address] [place], [place] [id number] [place] [address] after 12/19/2017 Insurance Type Payer Benefit Subscriber ID Effective Phone Address Plan / Dates Group Commercial AARP AARP xxxxxxxxxxx 2010-P SUPPLEMENT resent Medicare MEDICARE MEDICARE xxxxxxxxxxx 1991-P [place], PART A AND resent [place] B Advance Directives Patient has advance care planning documents on file. For more information, marily e contact: Semaj Barraza [address] [place] [address]
--- OUTSIDE RECORDS SUMMARY | 2018-12-20 17:31 | XMS REPORT | Clinical Summary ---
Author Author IBETH [employer] Organization [facility] [employer] [facility] Address Unknown Phone Unavailable Care Team Providers Care Curriculum Designer Name Role Phone Santino Marroquin MD PCP [...] Lot Implanted Type Area Manufactur er 07/28/2020 [id number] / / [id number] Acet Head,Modular Cocr 36mm +12mm Joints Right: Hip BIOMET/O.E Skirted - [id number] .C. Implanted: Qty: 1 on 09/25/2014 by Steve Niño MD 06/27/2018 [id number] / / [id number] Acet Liner,G7 Arcomxl 10 Deg 36mm Pain Right: Hip [employer] Lizette G - [id number] Mgmt/Stimu Implanted: Qty: 1 on 09/25/2014 by Steve Cerda MD 04/27/2018 [id number] / / [id number] Acet Liner,G7 Arcomxl Neutral 36mm Pain Right: Hip [employer] Lizette G - [id number] Mgmt/Stimu Implanted: Qty: 1 on 09/25/2014 by Steve Cerda MD 02/26/2024 [id number] / / [id number] Screw,G7 Low Profile Dome 6.5x30mm Pain Right: Hip [employer] - [id number] Mgmt/Stimu Implanted: Qty: 1 on 09/25/2014 by Steve Cerda MD 03/27/2024 [id number] / / [id number] Screw,G7 Low Profile Dome 6.5x15mm Pain Right: Hip [employer] - [id number] Mgmt/Stimu Implanted: Qty: 1 on 09/25/2014 by Steve Cerda MD 01/26/2024 [id number] / / [id number] Screw,G7 Low Profile Dome 6.5x25mm Pain Right: Hip [employer] - [id number] Mgmt/Stimu Implanted: Qty: 1 on 09/25/2014 by Steve Cerda MD 05/27/2024 [id number] / / [id number] G7 [place] Ti Acetabular Shell Right: Hip BIOMET Implanted: Qty: 1 on 09/25/2014 by Steve Niño MD Results Not on fileafter 12/19/2017 Insurance Payer Benefit Subscriber ID Type Phone Address Plan / Group MEDICARE MEDICARE A xxxxxxxxxx Medicare B MCR SUPPLEMENT/INDIVIDUAL AARP/UNITE xxxxxxxxxxx [facility] D HEALTHCARE Advance Directives For more information, please contact: [address] [address] Date Inactivated Comments Code Status Date Activated 09/27/2014 3:10 PM Full Code 09/25/2014 6:09 AM This code status was determined by: Patient 12/16/2012 4:27 PM All possible means of support, including: cardiac massage, mechanical ventilation, and defibrillation will be used to support life. Code ONE 12/15/2012 1:53 PM
--- NOTE | 2018-12-20 18:13 | NUR ---
2ND ATTEMPT TO CALL REPORT. TOLD NURSE WILL CALL ME BACK IN 5 MIN
[2018-12-20] MEDS ORDERED: METOPROLOL TART50 MG PO (18:29)
--- NOTE | 2018-12-20 18:35 | NUR ---
PT TO THE FLOOR AT THIS TIME. PT ORIENTED TO ROOM, IN BED WITH PROSTHETIC WITHIN REACH. INSTRUCTED TO USE THE CALL LIGHT.
[2018-12-20] MEDS ORDERED: MYSOLINE50 MG (18:59)
[2018-12-20 20:00] VITALS: BP 166/70
[2018-12-20 20:01] VITALS: BP 166/70
--- NOTE | 2018-12-20 20:05 | NUR ---
RECEIVED PATIENT. PATIENT IS RESTING IN BED, AAOX3. RESP EVEN AND UNLABORED. NO ACUTE DISTRESS NOTED. LOWER BACK ABSCESS NOTED. DRESSING CHANGE COMPLETE TO LOWER BACK. HEALING STAGE 2 SACRAL PRESSURE ULCER NOTED, ALLEVYN DRESSING APPLIED. LEFT BKA NOTED. RIGHT TOES AMPUTATED NOTED. PATIENT DENIES OF ANY PAIN AT THIS TIME. EDUCATED PATIENT TO BE NPO AFTER MIDNIGHT PER MD ORDER. CALL LIGHT WITHIN REACH. BED LOW/LOCKED. CONTINUE TO MONITOR CLOSELY
[2018-12-20] MEDS ORDERED: SODIUM CHLORIDE 0.9% 1000ML 1,000 ML ONE (20:50)
[2018-12-20] MEDS: INSULIN LISPRO 100 UNIT/1 ML 3ML VIAL SQ SCH (21:15)
--- NOTE | 2018-12-20 22:30 | NUR ---
SPOKE TO DR. AVILA ABOUT CONSULT. ORDERED TO KEEP PATIENT NPO AFTER MIDNIGHT.
--- NOTE | 2018-12-20 23:45 | NUR ---
PATIENT REFUSED IV FLUID
[2018-12-21 00:27] VITALS: BP 178/75
[2018-12-21] MEDS ORDERED: TUMS200 MG PO (03:05)
[2018-12-21] MEDS ORDERED: PANTOPRAZOLE SO40 MG PO (03:14)
[2018-12-21] MEDS ORDERED: MYSOLINE50 MG PO (03:14)
[2018-12-21] MEDS ORDERED: BRILINTA90 MG PO (03:14)
[2018-12-21] MEDS ORDERED: NITROGLYCERIN0.4 MG SL (03:14)
[2018-12-21] MEDS ORDERED: HYDRALAZINE HCL25 MG PO (03:14)
[2018-12-21] MEDS ORDERED: AMLODIPINE BESYL5 MG PO (03:14)
[2018-12-21] MEDS ORDERED: GLIMEPIRIDE2 MG PO (03:14)
[2018-12-21] MEDS ORDERED: ZOLPIDEM TARTRA10 MG PO (03:14)
[2018-12-21] MEDS ORDERED: NORCO 7.5-3251 EACH PO (03:14)
[2018-12-21] MEDS ORDERED: METHADONE HCL10 MG PO (03:14)
[2018-12-21] MEDS: PIPER-TAZ 3.375 GM 50 ML IV SCH ×4 (03:59→22:11)
[2018-12-21] MEDS ORDERED: VANCOMYCIN 1GM/NS 250 ML 250 ML IV SCH (04:00)
[2018-12-21 05:00] LABS: BASOPHILS % 0.4 % (0.0-1.0); EOSINOPHILS # (AUTO) 0.2 (0.0-0.4); EOSINOPHILS % 3.4 % (0.0-6.0); HEMATOCRIT 33.6 % (38.2-49.6); HEMOGLOBIN 10.6 g/dL (14.0-18.0); LYMPHOCYTES # (AUTO) 1.5 (1.0-3.2); LYMPHOCYTES % 21.7 % (18.0-39.1); MEAN CORPUSCULAR HEMOGLOBIN 28.6 pg (28-32); MEAN CORPUSCULAR HGB CONC 31.5 g/dL (31-35); MEAN CORPUSCULAR VOLUME 90.6 fL (81-99); MONOCYTES # (AUTO) 0.7 (0.2-0.8); MONOCYTES % 9.5 % (4.4-11.3); NEUTROPHILS # (AUTO) 4.4 (2.1-6.9); NEUTROPHILS % 64.7 % (38.7-80.0); PLATELET COUNT 178 x10e3/uL (140-360); RED BLOOD COUNT 3.71 x10e6/uL (4.3-5.7)
[2018-12-21 05:22] LABS: ALANINE AMINOTRANSFERASE 15 IU/L (0-55); ALBUMIN 3.2 g/dL (3.5-5.0); ALBUMIN/GLOBULIN RATIO 1.1 (0.8-2.0); ALKALINE PHOSPHATASE 136 IU/L (40-150); ANION GAP 13.1 mmol/L (8-16); BLOOD UREA NITROGEN 19 mg/dL (7-26); BUN/CREATININE RATIO 17 (6-25); CALCIUM 8.5 mg/dL (8.4-10.2); CARBON DIOXIDE 27 mmol/L (22-29); CHLORIDE 103 mmol/L (98-107); CREATININE, SERUM 1.12 mg/dL (0.72-1.25); EST GLOMERULAR FILTRATION RATE > 60 ML/MIN (60-); GLUCOSE 188 mg/dL (74-118); POTASSIUM 4.1 mmol/L (3.5-5.1); SODIUM 139 mmol/L (136-145)
[2018-12-21 05:53] VITALS: BP 179/80
[2018-12-21] MEDS: INSULIN LISPRO 100 UNIT/1 ML 3ML VIAL SQ SCH ×4 (07:30→21:55)
[2018-12-21 08:00] VITALS: BP 143/65
--- NOTE | 2018-12-21 08:00 | NUR ---
AAOX3 to time, person, place. Respirations even and unlabored. c/o back pain, HR 47. Paged to notify of status.
--- NOTE | 2018-12-21 09:15 | NUR ---
c/o back pain .Repaged to notify of status.
--- NOTE | 2018-12-21 11:08 | NUR ---
taken for procedure. No s/s of acute distress noted.
[2018-12-21] MEDS ORDERED: NITROGLYCERIN 0.4 MG SUBL SL PRN (11:45)
[2018-12-21] MEDS ORDERED: CALCIUM CARBONATE 500 MG CHEWABLE TABS PO PRN (11:45)
--- NOTE | 2018-12-21 11:46 | NUR ---
Dr.S Panda aware of HR 47 this am. See orders
[2018-12-21] MEDS ORDERED: FENTANYL CITRATE/PF 100MCG/2 ML INJ ONE ×2 (12:24→20:08)
--- NOTE | 2018-12-21 12:50 | NUR ---
Back from procedure. Microfoam dressing clean, dry, and intact. Addendum: 12/21/18 at 1256 by DAQUAN STARR RN microfoam dressing to lower back clean, dry, and intact
[2018-12-21] MEDS: GABAPENTIN 300 MG CAP PO SCH ×2 (13:21→22:11)
[2018-12-21] MEDS: METHADONE HCL 10 MG TAB PO PRN ×2 (13:21→18:25)
--- NOTE | 2018-12-21 13:22 | NUR ---
Patient refuses SCD. Educated purpose for SCD. Voiced understanding and states " I don't want them, Ill be getting up to the recliner later on, and that's where I spend most of my day."
--- NOTE | 2018-12-21 15:07 | Operative Report ---
DATE OF PROCEDURE: 12/21/2018 SURGEON: Eloy Gallego MD PREOPERATIVE DIAGNOSIS: Abscess of the right lower back. POSTOPERATIVE DIAGNOSIS: Abscess of the right lower back. OPERATION PERFORMED: Incision, drainage and debridement of abscess of the right lower back. ANESTHESIA: General. COMPLICATIONS: None. ESTIMATED BLOOD LOSS: Minimal. PROCEDURE IN DETAIL: With the patient lying bed in the lateral position under good general anesthesia, the back was prepped with Betadine solution and draped in the usual manner. There was a bulging abscess from what appeared to be an infected inclusion cyst in the right lower back. The skin overlying the opening was then resected and a large amount of purulent material and sebaceous contents were then aspirated. The abscess cavity was then debrided and as much of the capsule of the cyst was removed as was possible. Once this was done, hemostasis was ascertained. The wound was then copiously irrigated with dilute Betadine solution and packed with 1 inch iodoform gauze. A dressing was applied. The sponge, lap, and needle count was correct. The patient tolerated the procedure well and returned to the recovery room in stable condition. MD YAZAN Morrissey/MODL /[id number]
[2018-12-21 16:00] VITALS: BP 145/65
[2018-12-21] MEDS: TICAGRELOR 90 MG TABLET PO SCH (16:01)
[2018-12-21] MEDS: HYDROCODONE/APAP 7.5MG-325MG 1 EA TAB PO SCH ×2 (16:01→22:12)
[2018-12-21] MEDS: GLIMEPIRIDE 2 MG TAB PO SCH (16:01)
[2018-12-21] MEDS: HYDRALAZINE HCL 25 MG TAB PO SCH ×2 (16:02→22:12)
[2018-12-21] MEDS: GEMFIBROZIL 600 MG TAB PO SCH (16:03)
[2018-12-21] MEDS: ISOSORBIDE MONONITRATE 30 MG TAB CR PO SCH (16:03)
[2018-12-21] MEDS: PRIMIDONE 50 MG TAB PO SCH (16:05)
[2018-12-21] MEDS: LISINOPRIL 20 MG TAB PO SCH (16:05)
[2018-12-21] MEDS: AMLODIPINE BESYLATE 5 MG TAB PO SCH (16:05)
[2018-12-21] MEDS ORDERED: ONDANSETRON HCL 4 MG ORAL DISINTEGRATING TAB PO PRN (16:45)
[2018-12-21] MEDS ORDERED: METOPROLOL TARTRATE 50 MG TAB PO SCH (17:00)
[2018-12-21] MEDS ORDERED: FUROSEMIDE 40 MG TAB PO SCH (17:00)
[2018-12-21] MEDS ORDERED: FUROSEMIDE 20 MG TAB PO SCH (17:00)
[2018-12-21] MEDS: METOPROLOL TARTRATE 50 MG TAB PO SCH (17:00)
[2018-12-21] MEDS: VANCOMYCIN 1GM/NS 250 ML 250 ML IV SCH (17:20)
--- NOTE | 2018-12-21 18:36 | NUR ---
Sitting on recliner, call light within reach. AAOX3 to time, person, place. Respirations even and unlabored.Report to be given to oncoming nurse of patient's status.
--- NOTE | 2018-12-21 19:30 | NUR ---
PATIENT IS RESTING IN RECLINER. ASSESS LOWER BACK DRESSING, DRY AND INTACT. PATIENT REFUSES SCD AT THIS TIME
[2018-12-21] MEDS ORDERED: DEXAMETHASONE SOD PHOS INJ 4 MG/ML VIAL ONE (19:42)
[2018-12-21] MEDS ORDERED: LIDOCAINE HCL 2% LOCAL INJ 5 ML SDV VIAL INJ ONE (19:42)
[2018-12-21] MEDS ORDERED: SEVOFLURANE INHAL SOLN 250 ML PEN BTL ONE (19:42)
[2018-12-21] MEDS ORDERED: EPHEDRINE SULFATE INJ 50 MG/10 ML SYR ONE (19:42)
[2018-12-21] MEDS ORDERED: ONDANSETRON HCL INJ 2MG/ML 2ML 2 MG/ML VIAL ONE (19:42)
[2018-12-21] MEDS ORDERED: PROPOFOL IV EMULSION 10 MG/ML 20 ML VIAL ONE (19:42)
[2018-12-21] MEDS ORDERED: MIDAZOLAM HCL 2 MG/2 ML VIAL ONE (20:08)
[2018-12-21 21:00] VITALS: BP 132/60
[2018-12-21] MEDS ORDERED: ATORVASTATIN 20 MG TAB PO SCH (21:00)
[2018-12-21] MEDS: ATORVASTATIN 40 MG TAB PO SCH (22:12)
[2018-12-22] VITALS (9 sets, daily range): BP systolic 123–181; BP diastolic 58–84
[2018-12-22] MEDS: PIPER-TAZ 3.375 GM 50 ML IV SCH ×4 (04:09→20:58)
[2018-12-22] MEDS: GABAPENTIN 300 MG CAP PO SCH ×3 (05:19→20:58)
[2018-12-22] MEDS: VANCOMYCIN 1GM/NS 250 ML 250 ML IV SCH ×2 (05:19→16:51)
[2018-12-22 05:45] LABS: BASOPHILS % 0.2 % (0.0-1.0); EOSINOPHILS # (AUTO) 0.1 (0.0-0.4); EOSINOPHILS % 1.2 % (0.0-6.0); HEMATOCRIT 29.9 % (38.2-49.6); HEMOGLOBIN 9.2 g/dL (14.0-18.0); LYMPHOCYTES # (AUTO) 1.3 (1.0-3.2); LYMPHOCYTES % 20.6 % (18.0-39.1); MEAN CORPUSCULAR HEMOGLOBIN 28.8 pg (28-32); MEAN CORPUSCULAR HGB CONC 30.8 g/dL (31-35); MEAN CORPUSCULAR VOLUME 93.4 fL (81-99); MONOCYTES # (AUTO) 0.6 (0.2-0.8); NEUTROPHILS # (AUTO) 4.3 (2.1-6.9); NEUTROPHILS % 67.7 % (38.7-80.0); PLATELET COUNT 173 x10e3/uL (140-360); RED CELL DISTRIBUTION WIDTH 13.8 % (11.7-14.4)
[2018-12-22 05:52] LABS: ANION GAP 12.1 mmol/L (8-16); BLOOD UREA NITROGEN 20 mg/dL (7-26); BUN/CREATININE RATIO 18 (6-25); CARBON DIOXIDE 27 mmol/L (22-29); CHLORIDE 100 mmol/L (98-107); CREATININE, SERUM 1.12 mg/dL (0.72-1.25); EST GLOMERULAR FILTRATION RATE > 60 ML/MIN (60-); GLUCOSE 206 mg/dL (74-118); POTASSIUM 4.1 mmol/L (3.5-5.1); SODIUM 135 mmol/L (136-145)
[2018-12-22] MEDS ORDERED: SODIUM CHLORIDE 0.9% 250ML 250 ML ONE (07:19)
[2018-12-22] MEDS: FUROSEMIDE 40 MG TAB PO SCH ×2 (09:00→16:04)
[2018-12-22] MEDS: INSULIN LISPRO 100 UNIT/1 ML 3ML VIAL SQ SCH ×4 (09:11→20:45)
[2018-12-22] MEDS: TICAGRELOR 90 MG TABLET PO SCH ×2 (09:11→16:04)
[2018-12-22] MEDS: ASPIRIN 81 MG ENTERIC COATED PO SCH (09:11)
[2018-12-22] MEDS: HYDRALAZINE HCL 25 MG TAB PO SCH ×3 (09:11→20:58)
[2018-12-22] MEDS: GLIMEPIRIDE 2 MG TAB PO SCH ×2 (09:11→16:04)
[2018-12-22] MEDS: ISOSORBIDE MONONITRATE 30 MG TAB CR PO SCH ×2 (09:12→16:04)
[2018-12-22] MEDS: GEMFIBROZIL 600 MG TAB PO SCH ×2 (09:12→16:04)
[2018-12-22] MEDS: METOPROLOL TARTRATE 50 MG TAB PO SCH ×2 (09:12→16:05)
[2018-12-22] MEDS: PRIMIDONE 50 MG TAB PO SCH ×2 (09:12→16:05)
[2018-12-22] MEDS: MULTIVITAMINS/MINERALS TAB PO SCH (09:12)
[2018-12-22] MEDS: HYDROCODONE/APAP 7.5MG-325MG 1 EA TAB PO SCH ×3 (09:13→20:58)
[2018-12-22] MEDS: LISINOPRIL 20 MG TAB PO SCH ×2 (09:13→16:05)
[2018-12-22] MEDS: AMLODIPINE BESYLATE 5 MG TAB PO SCH ×2 (09:13→16:05)
[2018-12-22] MEDS: PANTOPRAZOLE SOD 40 MG TABEC PO SCH (09:13)
[2018-12-22] MEDS: METHADONE HCL 10 MG TAB PO PRN (12:48)
--- NOTE | 2018-12-22 12:58 | NUR ---
WOUND CARE CONSULTATION: THIS IS A 73 YEAR OLD MALE PATIENT ADMITTED TO [facility] FOR ABSCESS AND CELLULITIS TO THE LOWER BACK. HEAD TO TOE SKIN ASSESSMENT PERFORMED. PATIENT HAS A SURGICAL DRESSING IN PLACE TO RIGHT LOWER BACK, STATUS POST I & D BY DR. Quoc AVILA ON 12/21/18; DRESSING IS DRY, INTACT AND TO REMAIN IN PLACE UNTIL SURGEON REMOVES. THE PATIENT HAS A STAGE 2 PRESSURE ULCER TO THE SACRUM MEASURING 3.5X4X0.1CM, WOUND BED 100% PINK AND GRANULAR. PATIENT STATED THAT HIS HOME HEALTH NURSE HAS BEEN TREATING IT DAILY AT HOME. PATIENT HAS AN OLD LEFT BKA AND AN OLD RIGHT TMA SITE; BOTH ARE INTACT AND HEALED. LABS: WBC6.41 [id number] BLOOD CULTURE = NEGATIVE URINE CULTURE = NEGATIVE MEDICATIONS: VANCOMYCIN RECOMMENDATIONS: -CONTINUE ALTERNATING PRESSURE RELIEF MATTRESS. -APPLY RIGHT HEEL PROTECTOR WITH PILLOW SUSPENSION. -TURN EVERY 2 HOURS AND PRN. -NURSING TO CLEAN STAGE 2 PRESSURE ULCER TO SACRUM WITH NORMAL SALINE, PAT DRY, APPLY VENELEX AND THEN ALLEVYN FOAM; CHANGE DAILY AND PRN. THANK YOU FOR THIS WOUND CARE CONSULT. Addendum: 12/22/18 at 1308 by Alesha Palmer RN Amended: Links added.
--- NOTE | 2018-12-22 19:05 | NUR ---
Report given to oncoming nurse of patient's status. Sitting on recliner. No s/s of acute distress noted. call light within reach
[2018-12-22] MEDS: ATORVASTATIN 40 MG TAB PO SCH (20:58)
[2018-12-23] VITALS (7 sets, daily range): BP systolic 123–169; BP diastolic 58–74
[2018-12-23] MEDS: PIPER-TAZ 3.375 GM 50 ML IV SCH ×4 (04:21→22:33)
[2018-12-23] MEDS: VANCOMYCIN 1GM/NS 250 ML 250 ML IV SCH ×2 (05:13→16:47)
[2018-12-23] MEDS: GABAPENTIN 300 MG CAP PO SCH ×3 (05:13→22:33)
[2018-12-23] MEDS: INSULIN LISPRO 100 UNIT/1 ML 3ML VIAL SQ SCH ×4 (07:29→20:07)
[2018-12-23] MEDS: GLIMEPIRIDE 2 MG TAB PO SCH ×2 (09:54→16:08)
[2018-12-23] MEDS: FUROSEMIDE 40 MG TAB PO SCH ×2 (09:55→16:11)
[2018-12-23] MEDS: TICAGRELOR 90 MG TABLET PO SCH ×2 (09:55→16:08)
[2018-12-23] MEDS: PRIMIDONE 50 MG TAB PO SCH ×2 (09:55→16:08)
[2018-12-23] MEDS: MULTIVITAMINS/MINERALS TAB PO SCH (09:55)
[2018-12-23] MEDS: GEMFIBROZIL 600 MG TAB PO SCH ×2 (09:55→16:08)
[2018-12-23] MEDS: AMLODIPINE BESYLATE 5 MG TAB PO SCH ×2 (09:55→16:11)
[2018-12-23] MEDS: BALSAM PERU/CASTOR OIL 5 GM OINT...G. TP SCH (09:55)
[2018-12-23] MEDS: LISINOPRIL 20 MG TAB PO SCH ×2 (09:55→16:11)
[2018-12-23] MEDS: HYDRALAZINE HCL 25 MG TAB PO SCH ×3 (09:55→20:11)
[2018-12-23] MEDS: PANTOPRAZOLE SOD 40 MG TABEC PO SCH (09:55)
[2018-12-23] MEDS: ISOSORBIDE MONONITRATE 30 MG TAB CR PO SCH ×2 (09:55→16:11)
[2018-12-23] MEDS: ASPIRIN 81 MG ENTERIC COATED PO SCH (09:55)
[2018-12-23] MEDS: METOPROLOL TARTRATE 50 MG TAB PO SCH ×2 (09:56→16:11)
[2018-12-23] MEDS: HYDROCODONE/APAP 7.5MG-325MG 1 EA TAB PO SCH ×3 (09:56→20:12)
[2018-12-23] MEDS ORDERED: NEOMYCIN/POLYMYXIN/BACITRACIN 15 GM TUBE TOP PRN (19:30)
[2018-12-23] MEDS: ATORVASTATIN 40 MG TAB PO SCH (20:12)
--- NOTE | 2018-12-23 20:26 | NUR ---
SNACK PROVIDED AT THIS TIME. PT SITTING IN RECLINER RESTING COMFORTABLY. DRESSING CHANGED AT THIS TIME WITH DRY GAUZE AND TECADERM. PT IN NO DISTRESS. CALL LIGHT IS IN REACH.
[2018-12-23] MEDS: METHADONE HCL 10 MG TAB PO PRN (22:34)
[2018-12-24] VITALS (7 sets, daily range): BP systolic 117–156; BP diastolic 60–72
[2018-12-24] MEDS: PIPER-TAZ 3.375 GM 50 ML IV SCH ×4 (04:05→21:45)
[2018-12-24] MEDS: VANCOMYCIN 1GM/NS 250 ML 250 ML IV SCH ×2 (05:28→17:00)
[2018-12-24] MEDS: GABAPENTIN 300 MG CAP PO SCH ×3 (05:28→21:43)
[2018-12-24] MEDS: HYDROCODONE/APAP 7.5MG-325MG 1 EA TAB PO SCH ×3 (05:51→21:08)
--- NOTE | 2018-12-24 06:54 | NUR ---
REPORT GIVEN TO THEO SERRANO. PT RESTING IN CHAIR. CALL LIGHT IN REACH.
[2018-12-24] MEDS: INSULIN LISPRO 100 UNIT/1 ML 3ML VIAL SQ SCH ×4 (07:30→21:40)
[2018-12-24] MEDS: GLIMEPIRIDE 2 MG TAB PO SCH ×2 (09:50→17:19)
[2018-12-24] MEDS: AMLODIPINE BESYLATE 5 MG TAB PO SCH ×2 (09:50→17:19)
[2018-12-24] MEDS: HYDRALAZINE HCL 25 MG TAB PO SCH ×3 (09:50→21:07)
[2018-12-24] MEDS: ASPIRIN 81 MG ENTERIC COATED PO SCH (09:50)
[2018-12-24] MEDS: GEMFIBROZIL 600 MG TAB PO SCH ×2 (09:50→17:19)
[2018-12-24] MEDS: FUROSEMIDE 40 MG TAB PO SCH ×2 (09:50→17:19)
[2018-12-24] MEDS: TICAGRELOR 90 MG TABLET PO SCH ×2 (09:50→17:19)
[2018-12-24] MEDS: MULTIVITAMINS/MINERALS TAB PO SCH (09:50)
[2018-12-24] MEDS: PRIMIDONE 50 MG TAB PO SCH ×2 (09:50→17:19)
[2018-12-24] MEDS: ISOSORBIDE MONONITRATE 30 MG TAB CR PO SCH ×2 (09:50→17:20)
[2018-12-24] MEDS: PANTOPRAZOLE SOD 40 MG TABEC PO SCH (09:51)
[2018-12-24] MEDS: METOPROLOL TARTRATE 50 MG TAB PO SCH ×2 (09:51→17:19)
[2018-12-24] MEDS: LISINOPRIL 20 MG TAB PO SCH ×2 (09:51→17:19)
[2018-12-24] MEDS: BALSAM PERU/CASTOR OIL 5 GM OINT...G. TP SCH (09:51)
--- NOTE | 2018-12-24 10:07 | NUR ---
dressing changed to lower back, wound cleansed with NS, neosporin applied and covered with dressing, minimal bleeding noted, patient tolerated well, will continue to monitor
--- NOTE | 2018-12-24 10:21 | NUR ---
CM received a telephone call from pt , Belia Nugent. She stated the patient already has [facility] in [facility]. Gave telephone consent, witnessed by Citlaly Regalado RN/RUTHIE.
--- NOTE | 2018-12-24 17:43 | NUR ---
Nutrition Screen Note RD Recommendation for Physician: 1. Continue with ADA Diet, add Cardiac Restrictions 2. Recommend oral nutritional supplement to aid with wound healing, pt refused modular supplements. OK to increase protein portions with meals 3. Continue with MVI Supplement Plan of Care: RD following, monitoring for tolerance and adequacy Nutrition reason for involvement: Nutrition Risk Trigger Primary Diagnose(s): Abscess, cellulitis PMH: Coronary artery disease, peripheral arterial disease, hypertension, chronic pain syndrome, status post left BKA Ht: 73in Wt: 213lbs BMI: 28kg/m2 IBW: 173 lbs Adj, IBW RD Assessment: (12/24) Chart reviewed. Labs and meds reviewed. 73 y/o M admitted for abscess and cellulitis. PMH of CAD,PAD,HTN, Diabetes Type 2 and left BKA per pts chart hx. Pt was seen by wound care nurse who noted patient has a stage 2 pressure ulcer to the sacrum. Pt see Patient with no complaint during time of visit, appeared to have finished 100% of lunch meal. Reports good appetite and oral intake. Denied and s/s of N/V/D/C and difficulties with chewing/swallowing. Per patient would not like to receive any nutritional supplements at this time. Requested increase in protein portions with meals. Will continue to monitor. Current Diet: ADA Diet Malnutrition Evaluation (12/24) The patient does not meet criteria for a specified degree of malnutrition at this time. Will re-evaluate at follow-up as appropriate. Diet Education Needs Assessment: Diet education not indicated. Nutrition Care Level: Low Signed: Madison Rivera, MS, RDN, LD
--- NOTE | 2018-12-24 18:00 | NUR ---
Vancomycin trough results pending and ETA for results unkown per Angelina in LAB, awaiting results will inform oncoming nurse
--- NOTE | 2018-12-24 18:38 | NUR ---
informed dr garcia, vanc trough 22.8, orders received and entered
[2018-12-24] MEDS: ATORVASTATIN 40 MG TAB PO SCH (21:07)
--- NOTE | 2018-12-24 21:09 | NUR ---
Pt sitting in chair at this time. pt AAOx3. Pt c/o pain in lower back 02/04. Andrew given as ordered. Snack provided at this time. Call light is in reach.
[2018-12-24] MEDS ORDERED: SODIUM CHLORIDE 0.9% 250ML 250 ML ONE (22:09)
[2018-12-25] VITALS (8 sets, daily range): BP systolic 106–162; BP diastolic 53–76
[2018-12-25] MEDS: PIPER-TAZ 3.375 GM 50 ML IV SCH ×4 (04:36→20:59)
[2018-12-25] MEDS: GABAPENTIN 300 MG CAP PO SCH ×3 (05:54→20:59)
[2018-12-25] MEDS: METHADONE HCL 10 MG TAB PO PRN (05:59)
--- NOTE | 2018-12-25 07:08 | NUR ---
RCD PT AT BED PT IS ALERT AND ORIENTED PT RESTING ON BED NO SIGNS OF ANY DISTRESS NOTED IV PATENT BED LOW AND LOCKED CALL LIGHT IN REACH
[2018-12-25] MEDS: INSULIN LISPRO 100 UNIT/1 ML 3ML VIAL SQ SCH ×4 (07:30→20:44)
[2018-12-25] MEDS: MULTIVITAMINS/MINERALS TAB PO SCH (09:00)
[2018-12-25] MEDS: LISINOPRIL 20 MG TAB PO SCH ×2 (09:00→16:27)
[2018-12-25] MEDS: GLIMEPIRIDE 2 MG TAB PO SCH ×2 (09:00→16:26)
[2018-12-25] MEDS: PRIMIDONE 50 MG TAB PO SCH ×2 (09:00→16:27)
[2018-12-25] MEDS: FUROSEMIDE 40 MG TAB PO SCH ×2 (09:00→16:27)
[2018-12-25] MEDS: HYDRALAZINE HCL 25 MG TAB PO SCH ×3 (09:00→20:49)
[2018-12-25] MEDS: PANTOPRAZOLE SOD 40 MG TABEC PO SCH (09:00)
[2018-12-25] MEDS: GEMFIBROZIL 600 MG TAB PO SCH ×2 (09:00→16:27)
[2018-12-25] MEDS: METOPROLOL TARTRATE 50 MG TAB PO SCH ×2 (09:00→16:27)
[2018-12-25] MEDS: TICAGRELOR 90 MG TABLET PO SCH ×2 (09:00→16:26)
[2018-12-25] MEDS: ASPIRIN 81 MG ENTERIC COATED PO SCH (09:00)
[2018-12-25] MEDS: ISOSORBIDE MONONITRATE 30 MG TAB CR PO SCH ×2 (09:00→16:26)
[2018-12-25] MEDS: AMLODIPINE BESYLATE 5 MG TAB PO SCH ×2 (09:00→16:27)
[2018-12-25] MEDS: BALSAM PERU/CASTOR OIL 5 GM OINT...G. TP SCH (09:00)
[2018-12-25] MEDS: HYDROCODONE/APAP 7.5MG-325MG 1 EA TAB PO SCH ×4 (09:00→20:48)
--- NOTE | 2018-12-25 10:00 | NUR ---
PT REFUSED TO CHANGE DRESSING HE SAID THE DRESSING IN GOOD
--- NOTE | 2018-12-25 18:41 | NUR ---
PT RESTING ON BED BED SIDE REPORT GIVEN TO ONCOMING NURSE
--- NOTE | 2018-12-25 18:50 | NUR ---
Pt sleeping in bed at this time. Pt appears to be in no distress. Respirations regular and even. Bed is in low locked position with side rails up. Call light is in reach.
[2018-12-25] MEDS: ATORVASTATIN 40 MG TAB PO SCH (20:48)
[2018-12-26] VITALS: BP 104/54
[2018-12-26 04:00] VITALS: BP 114/55
[2018-12-26] MEDS: PIPER-TAZ 3.375 GM 50 ML IV SCH ×3 (04:47→16:24)
[2018-12-26] MEDS: GABAPENTIN 300 MG CAP PO SCH ×2 (06:02→14:04)
[2018-12-26] MEDS: METHADONE HCL 10 MG TAB PO PRN ×2 (06:05→14:05)
--- NOTE | 2018-12-26 07:35 | NUR ---
Report given to THEO Burkett. Pt sitting up in bed eating breakfast at this time. Call light is in reach.
[2018-12-26 07:59] VITALS: BP 145/67
[2018-12-26 08:52] VITALS: BP 145/67
[2018-12-26] MEDS: PRIMIDONE 50 MG TAB PO SCH ×2 (08:52→16:24)
[2018-12-26] MEDS: TICAGRELOR 90 MG TABLET PO SCH ×2 (08:52→16:24)
[2018-12-26] MEDS: ASPIRIN 81 MG ENTERIC COATED PO SCH (08:52)
[2018-12-26] MEDS: INSULIN LISPRO 100 UNIT/1 ML 3ML VIAL SQ SCH ×3 (08:52→16:49)
[2018-12-26] MEDS: AMLODIPINE BESYLATE 5 MG TAB PO SCH ×2 (08:52→16:24)
[2018-12-26] MEDS: HYDROCODONE/APAP 7.5MG-325MG 1 EA TAB PO SCH ×2 (08:52→15:14)
[2018-12-26] MEDS: GEMFIBROZIL 600 MG TAB PO SCH ×2 (08:52→16:24)
[2018-12-26] MEDS: LISINOPRIL 20 MG TAB PO SCH ×2 (08:52→16:24)
[2018-12-26] MEDS: HYDRALAZINE HCL 25 MG TAB PO SCH ×2 (08:52→14:05)
[2018-12-26] MEDS: MULTIVITAMINS/MINERALS TAB PO SCH (08:52)
[2018-12-26] MEDS: ISOSORBIDE MONONITRATE 30 MG TAB CR PO SCH ×2 (08:52→16:24)
[2018-12-26] MEDS: PANTOPRAZOLE SOD 40 MG TABEC PO SCH (08:52)
[2018-12-26] MEDS: METOPROLOL TARTRATE 50 MG TAB PO SCH ×2 (08:52→16:24)
[2018-12-26] MEDS: GLIMEPIRIDE 2 MG TAB PO SCH ×2 (08:52→16:24)
[2018-12-26] MEDS: FUROSEMIDE 40 MG TAB PO SCH ×2 (09:00→15:50)
--- NOTE | 2018-12-26 10:38 | NUR ---
CM SPOKE TO PATIENT AT BEDSIDE REGARDING DISCHARGE PLAN AND ORDER FOR [facility]. PATIENT AWARE OF [facility] PATIENT AND REQUESTS [facility]. PATIENT GIVEN CHOICE LETTER AND SIGNED CHOICE FOR [facility]. CHOICE PLACED IN CHART. TONY MORALES FOR [facility] NOTIFIED AND ON THE WAY TO [facility]. MOT INITIATED AND GIVEN TO TEA TREE FARMER. PENDING AUTH AND ROOM # TO THE FOLLOWING LT[facility] FACILITY: [facility] Address: [facility], [place] [address] LIAISON: ANDREW MIDDLETON
[2018-12-26 11:58] VITALS: BP 133/64
[2018-12-26] MEDS: BALSAM PERU/CASTOR OIL 5 GM OINT...G. TP SCH (12:11)
--- NOTE | 2018-12-26 15:22 | NUR ---
Dr. Kymberly Gallego taking call for Dr. Quoc Gallego, states "he can be discharged and to follow wound care already established with neosporin and gauze. It is ok for him to go to [place]."
[2018-12-26 15:40] VITALS: BP 154/67
--- NOTE | 2018-12-26 17:31 | NUR ---
Patient left the unit via stretcher by EMS to be transported to [place]. No signs of distress noted. Pain is stated at 2/10. Patient and patient's daughter left with all belongings prior to discharge.
--- NOTE | 2019-01-31 12:44 | Discharge Summary ---
CHIEF COMPLAINT: Swelling and redness of lower back. FINAL DIAGNOSES: 1. Lower back abscess. 2. Diabetes type 2. 3. Peripheral vascular disease. DISPOSITION: LTAC placement. HOSPITAL COURSE: A 73-year-old male with a known history of hypertension, peripheral vascular disease, diabetes type 2, and coronary artery disease, was brought to the ER with a 1-week history of increasing swelling and redness of the low back, was actively draining clear pus along lesion. Has been having low-grade temp, evaluated in the ER. The patient demonstrates a left BKA. The back floor area represents a 5 x 5 abscess, actively draining, tender to palpate. Further review and evaluation took place. The patient admitted for treatment regarding abscess low back, diabetes type 2, hypertension, peripheral vascular disease, and coronary artery disease. With admission, the patient was started on IV antibiotics, will be requesting a General Surgical follow. Home medications will continue. With admission, the patient was reviewed by General Surgery and following his evaluation, his impression was abscess of right lower back. Recommendations are made for debridement. SURGERIES/PROCEDURES: On 12/21/2018, Dr. Gallego. Preoperative diagnosis, abscess of right lower back. Postoperative diagnosis, abscess of right lower back. Procedure was incision and drainage and debridement of abscess of right lower back. There were no complications. Estimated blood loss was minimal. Packed with 1-inch iodoform gauze. Dressing was applied. The patient returned to recovery room in good condition. As stated, with admission, the patient was taken to surgery following the review by Dr. Gallego, where he underwent the incision and drainage of the abscess. He was receiving Zosyn along with vancomycin, was on IV fluids, was continuing with his routine insulin protocols, was doing well. Dressings were continued to be applied to the location of the lower back, was tolerating the antibiotics without difficulty, was showing to be a little bit anemic postprocedure. Followup review by Dr. Gallego lead to the communication of being able to be discharged home on oral antibiotics. Wound care was continuing. His other daily medications were being brought on-board as well during his stay. The culture reports were still pending from the surgical site. The patient continued to be in no acute distress postprocedure. Continued to be resting comfortably. He will be requiring further wound care protocols as well as monitoring management of the IV antibiotics and case management did vomit. The patient was transferred to [facility] for further continuation of treatment. The patient was transferred in stable condition. The cyst culture was growing Staphylococcus aureus. Blood cultures were negative. Urine cultures were negative. LABORATORY DATA: Laboratory studies were showing stable CBC with a white count H and H began at 11.8 and 37.4, trended down to a final study at 9.2 to 29.9. Urinalysis was showing moderate amount of bacteria microscopically. Chemistries pay close attention to the patient's blood sugar status. His initial panel was revealing stable electrolytes. Kidney functions are stable. Initial glucose was 136. Followup glucoses were as high as 293, final glucose 149. As mentioned, the patient will be requiring further care and was transferred to [facility]. At that location, the patient will continue on his diabetic diet. We will continue on his MARs program. We will continue his wound dressings, transferred with his IV access in place to continue his IV antibiotics, will be upgraded to a PICC line at that location. Activity level as directed by me. I will be monitoring and managing the patient's condition during his stay. I will be evaluating the status daily. Adjustments will be made as needed. Dictated by LINDSEY Riddle Kyle Panda MD CC/RAMIN /[id number]
== END 2018-12-26 17:32 | DRG 572 ==
LOC: ER 14:55 → ERHOLD 16:47 → MED/SURG2 18:42
PROC: 0JB70ZZ Excision of Back Subcutaneous Tissue and Fascia, Open Approach (ICD-10-PCS; principal; 2018-12-21 11:37)
DX: L02.212 Cutaneous abscess of back [any part, except buttock and flank] (principal); L03.312 Cellulitis of back [any part except buttock and flank]; E11.51 Type 2 diabetes mellitus with diabetic peripheral angiopathy without gangrene; Z79.4 Long term (current) use of insulin; I25.10 Atherosclerotic heart disease of native coronary artery without angina pectoris; E78.5 Hyperlipidemia, unspecified; I10 Essential (primary) hypertension; K21.9 Gastro-esophageal reflux disease without esophagitis
CPT/HCPCS: 36415; 80048; 80053; 80202; 81001; 82948; 83605; 83735; 85025; 85610; 85730; 87040; 87071; 87075; 87086; 87186; 87205; 99284; J1100; J2001; J2250; J2405; J2543; J3010; J3370; J7030; J7050

== ENCOUNTER → 2019-07-04 | Day surgery (SDC) | payer MEDICARE ==
[2019-07-03 13:26] LABS: BASOPHILS % 0.3 % (0.0-1.0); EOSINOPHILS # (AUTO) 0.2 (0.0-0.4); EOSINOPHILS % 3.6 % (0.0-6.0); HEMATOCRIT 36.9 % (38.2-49.6); HEMOGLOBIN 11.1 g/dL (14.0-18.0); LYMPHOCYTES # (AUTO) 1.5 (1.0-3.2); LYMPHOCYTES % 23.6 % (18.0-39.1); MEAN CORPUSCULAR HEMOGLOBIN 28.6 pg (28-32); MEAN CORPUSCULAR HGB CONC 30.1 g/dL (31-35); MEAN CORPUSCULAR VOLUME 95.1 fL (81-99); MONOCYTES # (AUTO) 0.7 (0.2-0.8); NEUTROPHILS # (AUTO) 3.8 (2.1-6.9); NEUTROPHILS % 61.2 % (38.7-80.0); PLATELET COUNT 156 x10e3/uL (140-360); RED BLOOD COUNT 3.88 x10e6/uL (4.3-5.7); RED CELL DISTRIBUTION WIDTH 13.8 % (11.7-14.4)
[2019-07-03 13:56] LABS: ALANINE AMINOTRANSFERASE 16 IU/L (0-55); ALBUMIN 3.5 g/dL (3.5-5.0); ALBUMIN/GLOBULIN RATIO 1.2 (0.8-2.0); ALKALINE PHOSPHATASE 126 IU/L (40-150); ANION GAP 15.2 mmol/L (8-16); BLOOD UREA NITROGEN 17 mg/dL (7-26); BUN/CREATININE RATIO 17 (6-25); CALCIUM 8.7 mg/dL (8.4-10.2); CARBON DIOXIDE 27 mmol/L (22-29); CHLORIDE 107 mmol/L (98-107); CREATININE, SERUM 1.03 mg/dL (0.72-1.25); EST GLOMERULAR FILTRATION RATE > 60 ML/MIN (60-); GLUCOSE 126 mg/dL (74-118); POTASSIUM 5.2 mmol/L (3.5-5.1); SODIUM 144 mmol/L (136-145)
[~2019-07-04] VITALS: Ht 186.7 cm; Wt 96.6 kg
[2019-07-04] VITALS (9 sets, daily range): BP systolic 100–147; BP diastolic 63–77
[~2019-07-04] MED LIST changes: +ALPRAZOLAM 0.5 MG TAB ONE; +AMLODIPINE BESYL5 MG PO; +CEFAZOLIN SOD 1 GM VIAL ONE; +DIPHENHYDRAMINE HCL 25 MG CAP ONE; +FENTANYL CITRATE/PF 100MCG/2 ML INJ ONE; +GLIMEPIRIDE2 MG PO; +HEPARIN SOD/SOD CHLORIDE 2,000 ML ONE; +HYDRALAZINE HCL25 MG PO; +IOPAMIDOL 370 MG/ML 200 ML INFUS..BTL INJ ONE; +LIDOCAINE HCL 2% LOCAL 20 ML VIAL ONE; +METOPROLOL TART50 MG PO; +MIDAZOLAM HCL 2 MG/2 ML VIAL ONE; +MYSOLINE50 MG; +MYSOLINE50 MG PO; +NITROGLYCERIN0.4 MG SL; +NORCO 7.5-3251 EACH PO; +PANTOPRAZOLE SO40 MG PO; +SODIUM CHLORIDE 0.9% 1000ML 1,000 ML ONE; +SODIUM CHLORIDE 0.9% 50ML 50 ML ONE; +TUMS200 MG PO
--- NOTE | 2019-07-04 10:58 | NUR ---
5207 bedside report received from THEO Sanders. Alert oriented and appropriate, PERRLA, respirations even and unlabored to room air. Pulses x2 Doppler rt extremity. Pedal pulses PT/DP.Cap fill brisk < 3 sec. Lef BKA with boot sock on. Rt groin Mnyx site Dry and intact. NO gross issues pain pallor pressure or dysrhythmia. Skin warm and dry integrity appears Left. IV 20g to hand Ancef infusing and 0.9Ns infusing via controller. presents healthy w/o s/s of infiltration or complaint. Abdomen soft and supple. pt offered toileting, denies need to urinate or defecate. No personal affects with patient. Family at bedside. Pt and family verbalizes understanding of POC. Currently w/o complaint of pain or need. bulmaro/theo
--- NOTE | 2019-07-04 13:00 | NUR ---
1300p Pt meets DC criteria. Rt groin, assessed for s/s of complication and presence of hematoma. Skin warm, dry, no discolor, and pulses present. IV removed from rt hand. Distal tip appears intact. VS WNL. Pt denies pain, sob, or need at this time. Family at bedside.. Review of discharge paperwork and follow up instructions. verbalized understanding. Pt to wheelchair and transported to front of hospital. Transferred to private vehicle under own strength w/o incident with DC paperwork in hand. - ds/rn
--- NOTE | 2019-07-04 13:54 | Operative Report ---
DATE OF PROCEDURE: 07/04/2019 SURGEON: Avni Cho MD INDICATIONS: Coronary artery disease, abnormal stress test. PROCEDURES PERFORMED: 1. Left heart catheterization, selective coronary angiography, left ventriculography. 2. Selective cannulation of one venous and one arterial bypass conduits. COMPLICATIONS: None. RECOMMENDATIONS: Medical therapy. DESCRIPTION OF PROCEDURE: Access obtained in the right femoral artery. A 6-Serbian sheath was placed. Coronary angiography demonstrated heavily calcified stents with 80% stenosis in the left main coronary artery extending to the circumflex artery. The circumflex had 100% in-stent restenosis. Left anterior descending artery was 100% occluded. Right coronary artery 70% occluded. No saphenous vein bypass grafts were patent. Left internal mammary artery was widely patent. Left anterior descending artery, LV end-diastolic pressure 25. No gradient across the aortic valve pullback. LV ejection fraction of 50%. Right groin repaired using Mynx closure device. The patient discharged home the same day. MD WILLOW Hinds/MODL /[id number]
== END | disposition home or self-care (01) ==
LOC: CATH LAB 07:49
PROVIDERS: ATTEND Internal Medicine Interventional Cardiology
DX: I25.708 Atherosclerosis of coronary artery bypass graft(s), unspecified, with other forms of angina pectoris (principal); R94.39 Abnormal result of other cardiovascular function study; Z01.812 Encounter for preprocedural laboratory examination; Z95.5 Presence of coronary angioplasty implant and graft; Z95.1 Presence of aortocoronary bypass graft
CPT/HCPCS: 36415; 80053; 85025; 93459; C1760; C1769; J0690; J2001; J2250; J3010; J7030; Q9967; 99152; 99153